=== PATIENT | male | born 1950 | race Caucasian/White ===

== ENCOUNTER 2017-01-15 17:46 | Inpatient (IN) | payer BC, OTHER ==
[2017-01-15 17:51] VITALS: BMI 29.7
[2017-01-15] MEDS ORDERED: ONDANSETRON 4 MG/2 ML VIAL ONE ×2 (18:09→18:17)
[2017-01-15] MEDS ORDERED: KETOROLAC TROMETHAMINE 30 MG/1 ML VIAL ONE ×2 (18:09→18:17)
[2017-01-15] MEDS ORDERED: HYDROmorphone HCL CARPU-JECT 2 MG/1 ML DISP.SYRIN ONE ×2 (18:09→18:17)
[2017-01-15] MEDS ORDERED: HYDROmorphone HCL CARPU-JECT 2 MG/1 ML DISP.SYRIN IVPUSH ONE (18:10)
--- NOTE | 2017-01-15 18:14 | PDOC ---
History of Present Illness <David Tobias - Last Filed: 01/15/17 18:09> - General History Source: Patient Exam Limitations: No Limitations - History of Present Illness Initial Comments: 01/15/17 18:23 The patient is a 66 year old male with past medical history of hypertension, chronic back pain who presents to the ED with complaints of flank pain that began today. The patient also noted hematuria while urinating multiple times today. As per , the patient experienced similar symptoms many years ago. The patient states that he follows up with a urologist located in [place]. He denies any fever, chills, nausea, vomiting, diarrhea, cough, shortness of breath. He denies any frequency, hesistency, or urgency. <Winnie Chen - Last Filed: 01/15/17 18:24> <Devika German - Last Filed: 01/15/17 21:30> <Michelle Churchill - Last Filed: 01/15/17 22:15> - General Chief Complaint: Hematuria Stated Complaint: SIDE PAIN/BLOOD IN URINE Time Seen by Provider: 01/15/17 18:08 Past History - Past Medical History HTN: Yes Kidney Stones: Yes - Surgical History Appendectomy: Yes - Psycho/Social/Smoking Cessation Hx Anxiety: No Suicidal Ideation: No Smoking History: Never smoked Hx Alcohol Use: Yes (SOCIAL) Drug/Substance Use Hx: No Substance Use Type: None <David Tobias - Last Filed: 01/15/17 18:09> <Winnie Chen - Last Filed: 01/15/17 18:24> <Devika German - Last Filed: 01/15/17 21:30> <Michelle Churchill - Last Filed: 01/15/17 22:15> - Past Medical History Allergies/Adverse Reactions: Allergies Allergy/AdvReac Type Severity Reaction Status Date / Time No Known Allergies Allergy Verified 01/15/17 17:50 Home Medications: Ambulatory Orders Atenolol [Tenormin -] 50 mg PO DAILY 01/15/17 Cyclobenzaprine HCl 0 mg PO 01/15/17 Enalapril Maleate [Vasotec -] 10 mg PO DAILY 01/15/17 Gabapentin 600 mg PO BID 01/15/17 Oxycodone HCl/Acetaminophen [Percocet 5-325 mg Tablet] 1 tab PO BID 01/15/17 Review of Systems - Review of Systems Able to Perform ROS?: Yes Comments:: 01/15/17 18:28 GENERAL/CONSTITUTIONAL: No fever or chills. No weakness. HEAD, EYES, EARS, NOSE AND THROAT: No change in vision. No ear pain or discharge. No sore throat. CARDIOVASCULAR: No chest pain or shortness of breath. RESPIRATORY: No cough, wheezing, or hemoptysis. GASTROINTESTINAL: No nausea, vomiting, diarrhea or constipation. GENITOURINARY: Present: flank pain, hematuria, dysuria No frequency. MUSCULOSKELETAL: No joint or muscle swelling or pain. No neck or back pain. SKIN: No rash NEUROLOGIC: No headache, vertigo, loss of consciousness, or change in strength/ sensation. ENDOCRINE: No increased thirst. No abnormal weight change. HEMATOLOGIC/LYMPHATIC: No anemia, easy bleeding, or history of blood clots. ALLERGIC/IMMUNOLOGIC: No hives or skin allergy. All Other Systems: Reviewed and Negative <Winnie Chen - Last Filed: 01/15/17 18:24> *Physical Exam - Vital Signs Last Vital Signs Temp Pulse Resp BP Pulse Ox 98.2 F 111 H 18 205/118 97 01/15/17 17:48 01/15/17 17:48 01/15/17 17:48 01/15/17 17:48 01/15/17 17:48 <David Tobias - Last Filed: 01/15/17 18:09> - Vital Signs Last Vital Signs Temp Pulse Resp BP Pulse Ox 98.2 F 111 H 18 205/118 97 01/15/17 17:48 01/15/17 17:48 01/15/17 17:48 01/15/17 17:48 01/15/17 17:48 - Physical Exam Comments: 01/15/17 18:30 GENERAL: Awake, alert, and fully oriented, in no acute distress HEAD: No signs of trauma EYES: PERRLA, EOMI, sclera anicteric, conjunctiva clear ENT: Auricles normal inspection, hearing grossly normal, nares patent, oropharynx clear without exudates. Moist mucosa NECK: Normal ROM, supple, no lymphadenopathy, JVD, or masses LUNGS: Breath sounds equal, clear to auscultation bilaterally. No wheezes, and no crackles HEART: Regular rate and rhythm, normal S1 and S2, no murmurs, rubs or gallops ABDOMEN: Soft, nontender, normoactive bowel sounds. No guarding, no rebound. No masses EXTREMITIES: Normal range of motion, no edema. No clubbing or cyanosis. No cords, erythema, or tenderness NEUROLOGICAL: Cranial nerves II through XII grossly intact. Normal speech, normal gait SKIN: Warm, Dry, normal turgor, no rashes or lesions noted. <Winnie Chen - Last Filed: 01/15/17 18:24> - Vital Signs Last Vital Signs Temp Pulse Resp BP Pulse Ox 98.2 F 85 18 172/85 98 01/15/17 17:48 01/15/17 19:07 01/15/17 19:07 01/15/17 19:07 01/15/17 19:07 <Devika German - Last Filed: 01/15/17 21:30> - Vital Signs Last Vital Signs Temp Pulse Resp BP Pulse Ox 98.2 F 85 18 172/85 98 01/15/17 17:48 01/15/17 19:07 01/15/17 19:07 01/15/17 19:07 01/15/17 19:07 <Michelle Churchill - Last Filed: 01/15/17 22:15> Heart Score/ECG Review #1 01/15/17 22:14 EKG obtained 22:03 NSR 81 bpm. Normal ECG. <Michelle Churchill - Last Filed: 01/15/17 22:15> ED Treatment Course - LABORATORY CBC & Chemistry Diagram: 01/15/17 18:20 01/15/17 18:20 - Medications Given in the ED: ED Medications Discontinued Medications Generic Name Dose Route Start Last Admin Trade Name Freq PRN Reason Stop Dose Admin Hydromorphone HCl 2 mg 01/15/17 18:10 01/15/17 18:20 Dilaudid Injection - IVPUSH 01/15/17 18:11 2 mg ONCE ONE Administration Ketorolac Tromethamine 30 mg 01/15/17 18:15 01/15/17 18:19 Toradol Injection - IVPUSH 01/15/17 18:16 30 mg ONCE ONE Administration Ondansetron HCl 4 mg 01/15/17 18:15 01/15/17 18:17 Zofran Injection IVPUSH 01/15/17 18:16 4 mg ONCE ONE Administration <HomeroWinnie lara - Last Filed: 01/15/17 18:24> - LABORATORY CBC & Chemistry Diagram: 01/15/17 18:20 01/15/17 18:20 - ADDITIONAL ORDERS Additional order review: Laboratory Results 01/15/17 18:20 Sodium 143 Potassium 4.1 Chloride 107 Carbon Dioxide 29 Anion Gap 7 L BUN 15 D Creatinine 1.2 D Creat Clearance w eGFR > 60 Random Glucose 112 H Calcium 9.1 Total Bilirubin 0.5 AST 18 ALT 26 Alkaline Phosphatase 62 Total Protein 7.0 Albumin 4.2 01/15/17 18:20 RBC 4.80 MCV 91.9 MCHC 33.9 RDW 12.4 MPV 8.1 Neutrophils % 48.0 Lymphocytes % 41.7 H Monocytes % 7.8 Eosinophils % 1.7 Basophils % 0.8 - Medications Given in the ED: ED Medications Discontinued Medications Generic Name Dose Route Start Last Admin Trade Name Stephane PRN Reason Stop Dose Admin Hydromorphone HCl 2 mg 01/15/17 18:10 01/15/17 18:20 Dilaudid Injection - IVPUSH 01/15/17 18:11 2 mg ONCE ONE Administration Ketorolac Tromethamine 30 mg 01/15/17 18:15 01/15/17 18:19 Toradol Injection - IVPUSH 01/15/17 18:16 30 mg ONCE ONE Administration Ondansetron HCl 4 mg 01/15/17 18:15 01/15/17 18:17 Zofran Injection IVPUSH 01/15/17 18:16 4 mg ONCE ONE Administration <Devika German - Last Filed: 01/15/17 21:30> - LABORATORY CBC & Chemistry Diagram: 01/15/17 18:20 01/15/17 18:20 - ADDITIONAL ORDERS Additional order review: Laboratory Results 01/15/17 18:20 Sodium 143 Potassium 4.1 Chloride 107 Carbon Dioxide 29 Anion Gap 7 L BUN 15 D Creatinine 1.2 D Creat Clearance w eGFR > 60 Random Glucose 112 H Calcium 9.1 Total Bilirubin 0.5 AST 18 ALT 26 Alkaline Phosphatase 62 Total Protein 7.0 Albumin 4.2 01/15/17 18:20 RBC 4.80 MCV 91.9 MCHC 33.9 RDW 12.4 MPV 8.1 Neutrophils % 48.0 Lymphocytes % 41.7 H Monocytes % 7.8 Eosinophils % 1.7 Basophils % 0.8 - Medications Given in the ED: ED Medications Discontinued Medications Generic Name Dose Route Start Last Admin Trade Name Stephane PRN Reason Stop Dose Admin Atenolol 50 mg 01/15/17 20:34 01/15/17 21:30 Tenormin - PO 01/15/17 20:35 50 mg ONCE ONE Administration Hydromorphone HCl 2 mg 01/15/17 18:10 01/15/17 18:20 Dilaudid Injection - IVPUSH 01/15/17 18:11 2 mg ONCE ONE Administration Ketorolac Tromethamine 30 mg 01/15/17 18:15 01/15/17 18:19 Toradol Injection - IVPUSH 01/15/17 18:16 30 mg ONCE ONE Administration Morphine Sulfate 2 mg 01/15/17 20:50 01/15/17 21:35 Morphine Injection - IVPUSH 01/15/17 20:51 2 mg ONCE ONE Administration Ondansetron HCl 4 mg 01/15/17 18:15 01/15/17 18:17 Zofran Injection IVPUSH 01/15/17 18:16 4 mg ONCE ONE Administration Sodium Chloride 500 ml 01/15/17 20:48 01/15/17 21:35 Normal Saline - IV 01/15/17 20:49 500 ml ONCE ONE Administration Tamsulosin HCl 0.4 mg 01/15/17 20:33 01/15/17 21:30 Flomax - PO 01/15/17 20:34 0.4 mg ONCE ONE Administration <Michelle Churchill - Last Filed: 01/15/17 22:15> Medical Decision Making - Medical Decision Making 01/15/17 20:31 Patient Name: Shay Maza THIS IS A PRELIMINARY REPORT FROM [facility] EXAM: CT abdomen and pelvis without contrast IMAGES: 466 DATE OF EXAM: 2017-01 18:40:42.0 REASON FOR EXAM: Flank pain and hematuria COMPARISON: None Findings: Mild atelectasis and scarring in lung bases. No pleural effusions. Small hiatal hernia. The liver, gallbladder, pancreas, adrenal glands, and spleen are grossly unremarkable. *Bilateral perinephric edema, left greater than right. Mild left hydroureteronephrosis due to a 5 mm calculus in the distal left ureter at the level of the upper pelvis. Tiny left intrarenal calculus. No AAA. No evidence for diverticulitis, small bowel obstruction, free fluid, or free air. Surgical changes around the cecum suggestive of appendectomy. THIS DOCUMENT HAS BEEN ELECTRONICALLY SIGNED 01/15/17 20:47 Pt remains with side pain and his BP is elevated. I will admit him as the kidney stone is 5mm and may not pass on its own. Pt cannot urinate and we are awaiting a urine sample. I will admit patient to [facility] surg for urology consult in the AM and for pain management overnight. <Devika German - Last Filed: 01/15/17 21:30> *DC/Admit/Observation/Transfer - Attestations Physician Attestion: 01/15/17 18:09 I, Dr. David Tobias, attest that this document has been prepared under my direction and personally reviewed by me in its entirety. I further attest, that it accurately reflects all work, treatment, procedures and medical decision -making performed by me. <David Tobias - Last Filed: 01/15/17 18:09> - Attestations Scribe Attestion: 01/15/17 18:31 Documentation prepared by Winnie Chen, acting as medical review coordinator for David Tobias MD. <Winnie Chen - Last Filed: 01/15/17 18:24> - Discharge Dispostion Admit: Yes <Devika German - Last Filed: 01/15/17 21:30> - Attestations Scribe Attestion: 01/15/17 22:14 Documentation prepared by Michelle Churchill, acting as medical review coordinator for Devika German MD. <Michelle Churchill - Last Filed: 01/15/17 22:15> Diagnosis at time of Disposition: Hydronephrosis with urinary obstruction due to ureteral calculus, Renal colic - Referrals
[2017-01-15] MEDS ORDERED: ONDANSETRON 4 MG/2 ML VIAL IVPUSH ONE (18:15)
[2017-01-15] MEDS ORDERED: KETOROLAC TROMETHAMINE 30 MG/1 ML VIAL IVPUSH ONE (18:15)
[2017-01-15 18:23] LABS: BASOPHIL 0.8 % (0-2.0); EOSINOPHIL 1.7 % (0-4.5); MCH 31.2 pg (25.7-33.7); MCHC 33.9 g/dl (32.0-35.9); MEAN CELL VOLUME 91.9 fl (80-96); MEAN PLT VOLUME 8.1 fl (7.5-11.1); PLATELET COUNT 273 K/MM3 (134-434); RDW 12.4 % (11.9-15.9)
[2017-01-15 18:50] LABS: ALBUMIN 4.2 g/dl (3.4-5.0); ALK PHOS 62 U/L (45-117); ANION GAP 7 (8-16); BILIRUBIN,TOTAL 0.5 mg/dL (0.2-1.0); CALCIUM 9.1 mg/dL (8.5-10.1); CO2 29 mmol/L (21-32); CREATININE 1.2 mg/dL (0.7-1.3); GLUCOSE,RANDOM 112 mg/dL (74-106); SGOT/AST 18 U/L (15-37); SGPT/ALT 26 U/L (12-78)
[2017-01-15] MEDS ORDERED: TAMSULOSIN HCL 0.4 MG CAP.ER.24H (FP) PO ONE (20:33)
[2017-01-15] MEDS ORDERED: ATENOLOL 50 MG TABLET (FP) PO ONE (20:34)
[2017-01-15] MEDS ORDERED: ENALAPRIL MALEATE 10 MG TABLET (FP) PO SCH (20:45)
[2017-01-15] MEDS ORDERED: SODIUM CHLORIDE 0.9% 500 ML INFUS.BAG IV ONE (20:48)
[2017-01-15] MEDS ORDERED: morphine CARPU-JECT 2 MG/1 ML DISP.SYRIN IVPUSH ONE (20:50)
--- NOTE | 2017-01-15 21:06 | PN ---
Teaching Attending Note Name of Resident: Yulisa Seymour ATTENDING PHYSICIAN STATEMENT I saw and evaluated the patient. I reviewed the resident's note and discussed the case with the resident. I agree with the resident's findings and plan as documented. SUBJECTIVE: 66 M who presents with Left flank pain. No fevers or chills noted at home. States he did not take his BP meds today and feels his pain level after pain meds in Ed is 4/10. States his pain radiates to left groin. No N/V/D. OBJECTIVE: Physical Vital Signs Period Temp Pulse Resp BP Sys/[place] Pulse Ox Last 24 Hr 98.2 F 85-111 18-18 172-205/85-118 97-98 BP RECHECK in ED 170/85 VS: GEN: NAD, Resting in bed HEENT: NCAT, PERRL CARD: RRR S1, S2 RESP: CTAB ABD: Mild suprapubic tenderness to palpation, BS X4 EXT: - C/C/E CBCD WBC 10.0 K/mm3 (4.0-10.0) 01/15/17 18:20 RBC 4.80 M/mm3 (4.00-5.60) 01/15/17 18:20 Hgb 15.0 GM/dL (11.7-16.9) 01/15/17 18:20 Hct 44.1 % (35.4-49) 01/15/17 18:20 MCV 91.9 fl (80-96) 01/15/17 18:20 MCHC 33.9 g/dl (32.0-35.9) 01/15/17 18:20 RDW 12.4 % (11.9-15.9) 01/15/17 18:20 Plt Count 273 K/MM3 (134-434) 01/15/17 18:20 MPV 8.1 fl (7.5-11.1) 01/15/17 18:20 CMP Sodium 143 mmol/L (136-145) 01/15/17 18:20 Potassium 4.1 mmol/L (3.5-5.1) 01/15/17 18:20 Chloride 107 mmol/L (98-107) 01/15/17 18:20 Carbon Dioxide 29 mmol/L (21-32) 01/15/17 18:20 Anion Gap 7 (8-16) L 01/15/17 18:20 BUN 15 mg/dL (7-18) D 01/15/17 18:20 Creatinine 1.2 mg/dL (0.7-1.3) D 01/15/17 18:20 Creat Clearance w eGFR > 60 (>60) 01/15/17 18:20 Random Glucose 112 mg/dL (74-106) H 01/15/17 18:20 Calcium 9.1 mg/dL (8.5-10.1) 01/15/17 18:20 Total Bilirubin 0.5 mg/dL (0.2-1.0) 01/15/17 18:20 AST 18 U/L (15-37) 01/15/17 18:20 ALT 26 U/L (12-78) 01/15/17 18:20 Alkaline Phosphatase 62 U/L (45-117) 01/15/17 18:20 Total Protein 7.0 g/dl (6.4-8.2) 01/15/17 18:20 Albumin 4.2 g/dl (3.4-5.0) 01/15/17 18:20 THIS IS A PRELIMINARY REPORT FROM [facility] EXAM: CT abdomen and pelvis without contrast IMAGES: 466 DATE OF EXAM: 2017-01-15 18:40:42.0 REASON FOR EXAM: Flank pain and hematuria COMPARISON: None Findings: Mild atelectasis and scarring in lung bases. No pleural effusions. Small hiatal hernia. The liver, gallbladder, pancreas, adrenal glands, and spleen are grossly unremarkable. *Bilateral perinephric edema, left greater than right. Mild left hydroureteronephrosis due to a 5 mm calculus in the distal left ureter at the level of the upper pelvis. Tiny left intrarenal calculus. No AAA. No evidence for diverticulitis, small bowel obstruction, free fluid, or free air. Surgical changes around the cecum suggestive of appendectomy. THIS DOCUMENT HAS BEEN ELECTRONICALLY SIGNED ASSESSMENT AND PLAN: 66 M with pmhx of HTN and Chronic back pain who presents with Left Flank Pain found to have nephrolithiasis with uncontrolled pain 1.)Nephrolithiasis, with mild hydroureteronephrosis - Flomax - IVF - Urine Strain - Pain control - If no improvement then Urology consult 2.) HTN - Uncontrolled - Pt. Did not take home meds, given- now controlled - C/w home meds 3.) Dvt Ppx - Low risk- ambulate Place in Obs
[2017-01-15] MEDS ORDERED: ATENOLOL 25 MG TABLET (FP) ONE (21:26)
[2017-01-15] MEDS ORDERED: morphine CARPU-JECT 2 MG/1 ML DISP.SYRIN ONE (21:26)
[2017-01-15] MEDS ORDERED: ENALAPRIL MALEATE 5 MG TABLET (FP) ONE (21:26)
[2017-01-15] MEDS ORDERED: TAMSULOSIN HCL 0.4 MG CAP.ER.24H (FP) ONE (21:27)
[2017-01-15 23:00] LABS: URINE APPEARANCE SLCLOUDY; URINE BILIRUBIN NEGATIVE (NEGATIVE); URINE COLOR YELLOW; URINE GLUCOSE (UA) NEGATIVE (NEGATIVE); URINE KETONE NEGATIVE (NEGATIVE); URINE LEUK ESTERASE NEGATIVE (NEGATIVE); URINE NITRITE NEGATIVE (NEGATIVE); URINE PROTEIN NEGATIVE (NEGATIVE); URINE UROBILINOGEN NEGATIVE E.U./dl (0.2-1.0)
[2017-01-15 23:01] LABS: URINE BLOOD 3+ (NEGATIVE)
[2017-01-15 23:05] LABS: URINE MUCUS MODERATE; URINE RBC 642 /hpf (0-3)
--- NOTE | 2017-01-15 23:19 | HP ---
CHIEF COMPLAINT: Left flank pain PCP: Dr. Evangelina Sanchez HISTORY OF PRESENT ILLNESS: Patient is a 66 year old male with a Significant PMHx of Nephrolithiasis and HTN who was BIBA for left flank pain that started three days ago in the middle of the night, which awoken him from sleep. The following day the patient noticed blood in his urine which later turned into blood clots. The left flank pain suddenly worsened today, which prompted this ED visit. Otherwise, patient denies dysuria, frequency, urgency, melena, dizziness, loss of consciousness, headaches, nausea, vomiting. Vital Signs - 24 hr 01/15/17 01/15/17 01/15/17 17:48 19:07 23:18 Temperature 98.2 F 97.6 F Pulse Rate 111 H Pulse Rate [ 85 83 Apical] Respiratory 18 18 18 Rate Blood Pressure 205/118 Blood Pressure 172/85 170/97 [Right Arm] O2 Sat by Pulse 97 98 95 Oximetry (%) PHYSICAL EXAMINATION GENERAL: Awake, alert, and fully oriented, and in no acute distress LUNGS: Breath sounds equal, clear to auscultation bilaterally. No wheezes, and no crackles. No accessory muscle use. HEART: Regular rate and rhythm, normal S1 and S2 without murmur, rub or gallop. ABDOMEN: Soft, nondistended. Left CVA and LLQ Tenderness upon palpation, normoactive bowel sounds. (+) Suprapubic tenderness LOWER EXTREMITIES: No peripheral edema. IMAGES: CT Abdomen/Pelvis: Mild atelectasis and scarring in lung bases. No pleural effusions. Small hiatal hernia. The liver, gallbladder, pancreas, adrenal glands, and spleen are grossly unremarkable. *Bilateral perinephric edema, left greater than right. Mild left hydroureteronephrosis due to a 5 mm calculus in the distal left ureter at the level of the upper pelvis. Tiny left intrarenal calculus. No AAA. No evidence for diverticulitis, small bowel obstruction, free fluid, or free air. Surgical changes around the cecum suggestive of appendectomy. ASSESSMENT/PLAN: Patient is a 66 year old male with a PMHx of HTN and Nephrolithiasis who presented for left flank pain and was found to have nephrolithiasis with mild left hydroureteronephrosis. Patient admitted for further monitoring and management. Nephrolithiasis with mild hydroureteronephrosis and Hematuria -CT revealed 5mm calculus with hydroureteronephrosis -U/A positive for 3+ blood -Pain Control with IV NS @125mls/hr -Morphine 1mg Q4H PRN for pain control -Flomax 0.4mg daily -Urine Strain -Will call Urology if no improvement or passage. HTN- Uncontrolled initially due to patient not taking his meds in the morning. Now on control. Continue home medications Enalapril and Atenolol Chronic Back Pain- Controlled. Continue home medications Gabapentin, Cyclobenzaprine F/E/N -IV NS -Electrolytes wnl -Sodium controlled diet Prophylaxis -Low risk. EAM. SCD's for DVT -No GI prophylaxis indicated Disposition -Full code -Admit to Med/Surg Visit type - Emergency Visit Emergency Visit: Yes ED Registration Date: 01/15/17 Care time: The patient presented to the Emergency Department on the above date and was hospitalized for further evaluation of their emergent condition. - New Patient This patient is new to me today: Yes Date on this admission: 01/16/17 - Critical Care Critical Care patient: Yes Total Critical Care Time (in minutes): 45 Critical Care Statement: The care of this patient involved high complexity decision making to prevent further life threatening deterioration of the patient 's condition and/or to evalute & treat vital organ system(s) failure or risk of failure.
[2017-01-15] MEDS ORDERED: ONDANSETRON 4 MG/2 ML VIAL IVPB PRN (23:27)
--- NOTE | 2017-01-16 00:06 | HP ---
-CHIEF COMPLAINT: Left flank pain, hematuria PCP: HISTORY OF PRESENT ILLNESS: 66yo man with remote hx of nephrolithiasis (35y ago, passed spontaneously), well controlled HTN, chronic low back pain (on oxycodone) who was BIBEMS for L flank pain and hematuria. He was at his [facility] last Monday when he was awoken from sleep by acute onset L flank pain that lasted for 1 hour. The following day he had hematuria, which has continued to the present each time he urinates. He noted occasional blood clots in his urine a few days ago, but no stones thus far. This afternoon (01/16) he again had acute onset non-radiating L flank pain. He denies urinary frequency, hesitancy, and urgency. He denies fever, but felt subjectively cold this afternoon despite the 94F weather today. He endorses nausea, but no vomiting. Denies chest pain, palpitation, and SOB. In the ED, he received 1mg hydromorphine, Ketorolac for pain. UA analysis c/w hematuria. Admit to Medicine for renal calculi and pain management. PAST MEDICAL HISTORY: #Nephrolithiasis: 35y ago, spontaneously passed stone #HTN: diagnosed at age 52. 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 #Obstructed ureter: 3y ago had "microwave" procedure for difficulty with urination. Possible BPH/LUTS. Urologist Dr. Mejia Mendoza, ([phone]). PAST SURGICAL HISTORY: #Appendectomy, 1999 #Inguinal hernia repair, 2013 Social History: Smoking: quit 1985, 2-3/day for 15years Alcohol: Social Drugs: Denies Family History: No nephrolithiasis, both parents HTN and of [place] (mom @ 54yo , dad @ 75yo) Allergies:No Known Allergies Allergy (Verified 01/15/17 17:50) HOME MEDICATIONS: Home Medications Medication Instructions Recorded Atenolol [Tenormin -] 50 mg PO DAILY 01/15/17 Cyclobenzaprine HCl 5 mg PO 01/15/17 Enalapril Maleate [Vasotec -] 10 mg PO DAILY 01/15/17 Gabapentin 600 mg PO BID 01/15/17 Oxycodone HCl/Acetaminophen 1 tab PO TID 01/15/17 [Percocet 5-325 mg Tablet] Aspirin 81 mg PO DAILY 01/15/17 REVIEW OF SYSTEMS CONSTITUTIONAL: +Nausea Absent: fever, chills, diaphoresis, generalized weakness, malaise, loss of appetite, weight change HEENT: Absent: rhinorrhea, nasal congestion, throat pain, throat swelling, difficulty swallowing, mouth swelling, ear pain, eye pain, visual changes CARDIOVASCULAR: Absent: chest pain, syncope, palpitations, irregular heart rate , lightheadedness, peripheral edema RESPIRATORY: Absent: cough, shortness of breath, dyspnea with exertion, orthopnea, wheezing, stridor, hemoptysis GASTROINTESTINAL: +nausea, +abdominal pain Absent: abdominal distension, vomiting, diarrhea, constipation, melena, hematochezia GENITOURINARY: +hematuria, flank pain, dysuria Absent: frequency, urgency, hesitancy, genital pain MUSCULOSKELETAL: Low back pain Absent: myalgia, arthralgia, joint swelling, neck pain SKIN: Absent: rash, itching, pallor HEMATOLOGIC/IMMUNOLOGIC: No hx of easy bleeding, easy bruising, lymphadenopathy , frequent infections ENDOCRINE: Absent: unexplained weight gain, unexplained weight loss, heat intolerance, cold intolerance NEUROLOGIC: Absent: headache, focal weakness or paresthesias, dizziness, unsteady gait, seizure, mental status changes, bladder or bowel incontinence PSYCHIATRIC: Not Assessed PHYSICAL EXAMINATION Vital Signs - 24 hr 01/15/17 23:18 Temperature 97.6 F Pulse Rate [ 83 Apical] Respiratory 18 Rate Blood Pressure 170/97 [Right Arm] O2 Sat by Pulse 95 Oximetry (%) GENERAL: Awake, alert, and fully oriented, in no acute distress. HEAD: Normal with no signs of trauma. EYES: PERRLA, EOMI, sclera anicteric, conjunctiva clear. NECK: Supple without lymphadenopathy, JVD, or masses. LUNGS: CTAB, no wheezes, and no crackles. No accessory muscle use. HEART: Regular rate and rhythm, normal S1 and S2 without murmur, rub or gallop. ABDOMEN: Soft, Left sided tenderness to deep palpation, no guarding, no rebound , no masses. No hepatosplenomegaly : L flank and suprapubic tenderness to palpation, no CVA tenderness UPPER EXTREMITIES: No peripheral edema. LOWER EXTREMITIES: 2+ pulses, warm, well-perfused. No peripheral edema. LABS: Laboratory Results - last 24 hr 01/15/17 01/15/17 01/15/17 18:14 18:20 18:20 WBC 10.0 RBC 4.80 Hgb 15.0 Hct 44.1 MCV 91.9 MCHC 33.9 RDW 12.4 Plt Count 273 MPV 8.1 Neutrophils % 48.0 Lymphocytes % 41.7 H Monocytes % 7.8 Eosinophils % 1.7 Basophils % 0.8 Sodium 143 Potassium 4.1 Chloride 107 Carbon Dioxide 29 Anion Gap 7 L BUN 15 D Creatinine 1.2 D Creat Clearance w eGFR > 60 Random Glucose 112 H Calcium 9.1 Total Bilirubin 0.5 AST 18 ALT 26 Alkaline Phosphatase 62 Total Protein 7.0 Albumin 4.2 Urine Color Yellow Urine Appearance Slcloudy Urine pH 5.0 Urine Protein Negative Urine Glucose (UA) Negative Urine Ketones Negative Urine Blood 3+ H Urine Nitrite Negative Urine Bilirubin Negative Urine Urobilinogen Negative Ur Leukocyte Esterase Negative Urine RBC 642 Urine WBC None Ur Epithelial Cells Rare Urine Mucus Moderate IMAGING: EXAM (01/15/17): CT abdomen and pelvis without contrast Patient Name: Shay Maza THIS IS A PRELIMINARY REPORT FROM [facility] IMAGES: [phone] DATE OF EXAM: 2017-01-15 18:40:42.0 REASON FOR EXAM: Flank pain and hematuria COMPARISON: None Findings: Mild atelectasis and scarring in lung bases. No pleural effusions. Small hiatal hernia. The liver, gallbladder, pancreas, adrenal glands, and spleen are grossly unremarkable. *Bilateral perinephric edema, left greater than right. Mild left hydroureteronephrosis due to a 5 mm calculus in the distal left ureter at the level of the upper pelvis. Tiny left intrarenal calculus. No AAA. No evidence for diverticulitis, small bowel obstruction, free fluid, or free air. Surgical changes around the cecum suggestive of appendectomy. THIS DOCUMENT HAS BEEN ELECTRONICALLY SIGNED CXR (01/15/2017): No pleural effusion, no pneumothorax ASSESSMENT/PLAN: This is a 66yo man with remote h/o nephrolithiasis (spontaneously passed) who presents with L flank pain and hematuria c/w acute nephrolithiasis. Physical exam was notable for suprapubic tenderness to palpation (7/10 pain) and L flank tenderness to palpation. UA notable for hematuria (3+ blood, 642 RBCs) with negative LE. CT abd/pelvis revealed mild L hydrourteronephrosis 2/2 to 5mm stone at distal L ureter. Pt is currently afebrile with no leukocytosis (WBC 10K ). Currently Cr is 1.2 with last prior creatinine of 0.7 in 2011. #Nephrolithiasis with hematuria -Tamsulosin 0.4mg PO daily -Hydromorphine 1mg q6h prn for pain -NS @125cc/min for hydration -Urine strain -AM BMP: Trend Cr -AM CBC -Consult urology if symptoms worsen. #HTN -Continue with home meds (ASA 81 daily, atenolol 50mg PO daily, enalapril 10mg PO daily) #Low back pain: Chronic -Continue with home meds (gabapentin 600mg PO BID, cyclobenaprine 5mg PO BID) -Hold Home oxycodone 325mg PO TID #F/E/N -IV NS -Electrolytes wnl -Low salt Diet #DVT prophylaxis: Low risk, EAM. SCD's b/l #Dispo: -FULL CODE -Admit Med/Surg d/w with team Yaquelin Nichols MD Visit type - Emergency Visit Emergency Visit: Yes ED Registration Date: 01/15/17 Care time: The patient presented to the Emergency Department on the above date and was hospitalized for further evaluation of their emergent condition. - New Patient This patient is new to me today: Yes Date on this admission: 01/16/17 - Critical Care Critical Care patient: No
[2017-01-16] MEDS: SODIUM CHLORIDE 1,000 ML IV SCH ×3 (00:30→23:00)
[2017-01-16] MEDS: morphine CARPU-JECT 2 MG/1 ML DISP.SYRIN IVPUSH PRN ×7 (00:32→23:08)
[2017-01-16] MEDS ORDERED: HYDROmorphone HCL CARPU-JECT 1 MG/1 ML DISP.SYRIN IVPUSH ONE (00:53)
[2017-01-16] MEDS ORDERED: HYDROmorphone HCL CARPU-JECT 1 MG/1 ML DISP.SYRIN ONE (03:09)
[2017-01-16 08:08] LABS: ANION GAP 9 (8-16); CALCIUM 8.6 mg/dL (8.5-10.1); CO2 26 mmol/L (21-32); CREATININE 1.4 mg/dL (0.7-1.3); GLUCOSE,RANDOM 103 mg/dL (74-106)
[2017-01-16 08:10] LABS: MCH 31.5 pg (25.7-33.7); MCHC 34.2 g/dl (32.0-35.9); MEAN CELL VOLUME 92.1 fl (80-96); MEAN PLT VOLUME 8.1 fl (7.5-11.1); PLATELET COUNT 230 K/MM3 (134-434); RDW 12.4 % (11.9-15.9); WHITE BLOOD COUNT 12.4 K/mm3 (4.0-10.0)
[2017-01-16] MEDS: ATENOLOL 50 MG TABLET (FP) PO SCH (09:38)
[2017-01-16] MEDS: ASPIRIN 81 MG CHEWABLE TABLETS PO SCH (09:38)
[2017-01-16] MEDS: ENALAPRIL MALEATE 10 MG TABLET (FP) PO SCH (09:38)
[2017-01-16] MEDS: TAMSULOSIN HCL 0.4 MG CAP.ER.24H (FP) PO SCH (09:38)
[2017-01-16] MEDS: CYCLOBENZAPRINE HCL 10 MG TABLET (FP) PO SCH ×2 (09:38→21:37)
[2017-01-16] MEDS: GABAPENTIN 300 MG CAPSULE (FP) PO SCH ×2 (09:38→21:37)
--- NOTE | 2017-01-16 10:36 | EKG ---
Test Reason : Blood Pressure : / mmHG Vent. Rate : 081 BPM Atrial Rate : 081 BPM P-R Int : 172 ms QRS Dur : 086 ms QT Int : 372 ms P-R-T Axes : 049 -09 -04 degrees QTc Int : 432 ms NORMAL SINUS RHYTHM NORMAL ECG WHEN COMPARED WITH ECG OF 25-AUG-2000 00:31, PREMATURE VENTRICULAR COMPLEXES ARE NO LONGER PRESENT Confirmed by NANCI DE LA ROSA MD ([id number]) on 01/16/2017 10:35:58 AM Referred By: Confirmed By:NANCI DE LA ROSA MD
[2017-01-16] MEDS ORDERED: SIMETHICONE 80 MG TAB.CHEW (FP) PO ONE (11:46)
--- NOTE | 2017-01-16 14:56 | PN ---
Teaching Attending Note Name of Resident: Yves Huber ATTENDING PHYSICIAN STATEMENT I saw and evaluated the patient. I reviewed the resident's note and discussed the case with the resident. I agree with the resident's findings and plan as documented. SUBJECTIVE:c/o excruciating L flank pain, some improvement with pain medication but does not last long enough until next available dose. hematuria has resolved but noted his UOP has decreased. last episode was 35 years ago which passed spontaneously, gave stone for composition but never followed up on results. no family hx of nephrolithasis. no recent changes to medications or diet OBJECTIVE: Last Vital Signs Temp Pulse Resp BP Pulse Ox 97.3 F L 74 20 188/104 95 01/16/17 10:00 01/16/17 10:00 01/16/17 10:01/16/17 10:01/16/17 09:00 General mild distress due to pain CV S1 S2 RRR no murmur/rub/gallop Lungs CTA B/L no wheezing/rales/rhonchi Abdomen L flank pain, mild CVA tenderness, +suprapubic discomfort ASSESSMENT AND PLAN: 66yo M with PMH HTN presented to the ER with L flank pain and found to have L sided nephrolithasis 1. L nephrolithasis with hydroureter- concern for decrease in UOP. check bladder scan. AXR to assess if stone has progressed. if not and continues to be in pain, will consult urology for intervention. increase morphine frequency to Q3H, cannot use toradol due to PAULINA. Cont high dose IVF, cont flomax. strain all urine. will need to evaluate for cause of nephrolithasis. 2. PAULINA- likely medication induced vs developing obstruction. will trend for now as lower on presentation. avoid nephrotoxic agents 3. HTN- uncontrolled. likely due to pain. adjust pain medications and give home medications. will adjust if needed 4. dvt ppx- EAM
[2017-01-16] MEDS: POLYETHYLENE GLYCOL 3350 119 GM BTL PO SCH ×2 (15:07→21:38)
--- NOTE | 2017-01-16 16:47 | PN ---
Physical Exam: SUBJECTIVE: Patient seen and examined Patient states he has had severe L flank pain overnight. He states the pain medicine helps for a while but then comes back prior to the next dose. Patient has had minimal episodes of urine output without hematuria or dysuria. Endorses abdominal distention. Denies chest pain, shortness of breath, fevers, chills, nausea, vomiting, diarrhea. OBJECTIVE: Vital Signs Period Temp Pulse Resp BP Sys/Hastings Pulse Ox Last 24 Hr 97.3 F-98.9 F 72-83 18-20 139-188/79-104 95-95 GENERAL: The patient is awake, alert, and fully oriented, in moderate acute distress. HEAD: Normal with no signs of trauma. EYES: PERRL, extraocular movements intact, sclera anicteric, conjunctiva clear. ENT: moist mucous membranes. NECK: Trachea midline, full range of motion, supple, no JVD LUNGS: Breath sounds equal, clear to auscultation bilaterally, no wheezes, no crackles, no accessory muscle use. HEART: Regular rate and rhythm, S1, S2 without murmur, rub or gallop. ABDOMEN: soft, mild distention, nontender, normoactive bowel sounds, no guarding , no rebound, no hepatosplenomegaly, no masses, Left flank pain, mild left CVA tenderness EXTREMITIES: 2+ pulses, warm, well-perfused, no edema. NEUROLOGICAL: Normal speech, gait not observed. PSYCH: Normal mood, normal affect. Laboratory Results - last 24 hr 01/16/17 01/16/17 06:00 06:00 WBC 12.4 H RBC 4.57 Hgb 14.4 Hct 42.1 MCV 92.1 MCHC 34.2 RDW 12.4 Plt Count 230 MPV 8.1 Sodium 141 Potassium 4.4 Chloride 106 Carbon Dioxide 26 Anion Gap 9 BUN 17 Creatinine 1.4 H Random Glucose 103 Calcium 8.6 Active Medications Generic Name Dose Route Start Last Admin Trade Name Freq PRN Reason Stop Dose Admin Aspirin 81 mg 01/16/17 10:01/16/17 09:38 Asa - PO 81 mg DAILY NORI Administration Atenolol 50 mg 01/16/17 10:00 01/16/17 09:38 Tenormin - PO 50 mg DAILY NORI Administration Cyclobenzaprine HCl 5 mg 01/16/17 10:00 01/16/17 09:38 Flexeril - PO 5 mg BID NORI Administration Enalapril Maleate 10 mg 01/16/17 10:00 01/16/17 09:38 Vasotec - PO 10 mg DAILY NORI Administration Gabapentin 300 mg 01/16/17 10:00 01/16/17 09:38 Neurontin - PO 300 mg BID NORI Administration Sodium Chloride 1,000 mls @ 125 mls/hr 01/15/17 23:30 01/16/17 00:30 Normal Saline - IV 125 mls/hr ASDIR NORI Administration Morphine Sulfate 1 mg 01/16/17 08:59 01/16/17 13:34 Morphine Injection - IVPUSH 1 mg Q3H PRN Administration PAIN Ondansetron HCl 4 mg 01/15/17 23:27 Zofran Injection IVPB Q6H PRN NAUSEA Polyethylene Glycol 17 gm 01/16/17 22:00 01/16/17 15:07 Miralax (For Daily Use) - PO 17 grams BID NORI Administration Tamsulosin HCl 0.4 mg 01/16/17 08:30 01/16/17 09:38 Flomax - PO 0.4 mg DAILY@0830 NORI Administration ASSESSMENT/PLAN: 66 year old M with a PMH of nephrolithiasis (35 years prior), which spontaneously passed at the time who presented to the ED with L flank pain and hematuria admitted for acute nephrolithiasis. 1. Nephrolithiasis -Remote history of nephrolithiasis 35 years prior with spontaneous passing of stone -CT abdomen shows a 5 mm stone in the distal ureter with mild hydronephrosis -f/u Abd KUB shows no evidence of stone -Bladder scan shows 50 cc of urine Plan: -Continue Tamsulosin 0.4mg daily -Continue Morphine Sulfate 1 mg IV push Q3 hrs PRN -Continue NS 125 cc/hr -Urine strain -Consult Urology 2. PAULINA -Likely medication induced, patient was given ketorolac -Cr increased to 1.4 from 1.2 Plan: -Continue to trend Cr -Avoid any nephrotoxic medications 3. HTN -poorly controlled Plan: -Continue Vasotec 10 mg PO Daily and Atenolol 50 mg PO Daily 4. Leukocytosis -Likely reactive leukocytosis Plan: -Continue to trend WBC 5. DVT Prophylaxis Plan: -EAM Visit type - Emergency Visit Emergency Visit: No - New Patient This patient is new to me today: Yes Date on this admission: 01/16/17 - Critical Care Critical Care patient: No
--- NOTE | 2017-01-16 17:58 | PN ---
Progress Note (short form) - Note Progress Note: called at 540pm today for this patient with a 5mm left UVJ stone and hydro patient has renal colic no fevers or any signs of infection or sepsis based on size and position stone had 90% chance of passage with medical expulsive therapy will follow Problem List - Problems (1) Hydronephrosis with urinary obstruction due to ureteral calculus Code(s): N13.2 - HYDRONEPHROSIS WITH RENAL AND URETERAL CALCULOUS OBSTRUCTION
[2017-01-17] MEDS ORDERED: CEFTRIAXONE 50 ML IVPB ONE (00:32)
[2017-01-17] MEDS: morphine CARPU-JECT 2 MG/1 ML DISP.SYRIN IVPUSH PRN ×5 (02:44→15:35)
[2017-01-17 08:15] LABS: BASOPHIL 0.2 % (0-2.0); EOSINOPHIL 0.5 % (0-4.5); MCH 32.1 pg (25.7-33.7); MCHC 35.1 g/dl (32.0-35.9); MEAN CELL VOLUME 91.5 fl (80-96); MEAN PLT VOLUME 8.2 fl (7.5-11.1); NEUTROPHILS 72.9 % (42.8-82.8); PLATELET COUNT 200 K/MM3 (134-434); RDW 12.1 % (11.9-15.9); WHITE BLOOD COUNT 12.4 K/mm3 (4.0-10.0)
[2017-01-17 08:25] LABS: INR 1.18 (0.82-1.09)
[2017-01-17 08:37] LABS: ANION GAP 10 (8-16); CALCIUM 8.2 mg/dL (8.5-10.1); CO2 25 mmol/L (21-32); GLUCOSE,RANDOM 107 mg/dL (74-106)
[2017-01-17 08:39] LABS: CREATININE 1.4 mg/dL (0.7-1.3)
[2017-01-17] MEDS: POLYETHYLENE GLYCOL 3350 119 GM BTL PO SCH ×2 (09:14→22:26)
[2017-01-17] MEDS: TAMSULOSIN HCL 0.4 MG CAP.ER.24H (FP) PO SCH ×2 (09:16→22:26)
[2017-01-17] MEDS: ENALAPRIL MALEATE 10 MG TABLET (FP) PO SCH (09:16)
[2017-01-17] MEDS: CYCLOBENZAPRINE HCL 10 MG TABLET (FP) PO SCH ×2 (09:16→22:24)
[2017-01-17] MEDS: ATENOLOL 50 MG TABLET (FP) PO SCH (09:16)
[2017-01-17] MEDS: GABAPENTIN 300 MG CAPSULE (FP) PO SCH ×2 (09:16→22:27)
[2017-01-17] MEDS: SODIUM CHLORIDE 1,000 ML IV SCH (09:17)
--- NOTE | 2017-01-17 09:29 | PN ---
Teaching Attending Note Name of Resident: Yves Huber ATTENDING PHYSICIAN STATEMENT I saw and evaluated the patient. I reviewed the resident's note and discussed the case with the resident. I agree with the resident's findings and plan as documented. SUBJECTIVE:c/o L flank pain,. relieved with pain medication. states hes been straining all urine and has not seen stone passage yet. requesting surgery to remove the stone. denies Cp, SOB,fever, chills, N/V/C/D, no hematuria OBJECTIVE: Last Vital Signs Temp Pulse Resp BP Pulse Ox 99.7 F H 80 20 137/65 95 01/17/17 06:17 01/17/17 06:17 01/17/17 06:17 01/17/17 06:01/16/17 09:00 General NAD Abdomen L flank pain, mild CVA tenderness, no suprapubic discomfort ASSESSMENT AND PLAN: 66yo M with PMH HTN presented to the ER with L flank pain and found to have L sided nephrolithasis 1. L nephrolithasis with hydroureter-continues to have pain but is relieved with morphine. AXR shows no stone however pt remains in pain. UOP reported by pt to have improved,. bladder scan after urination with only 50cc residual. evaluated by urology who states to continue medical management at this time but did make pt NPO this AM, possibility of . was given Ceftriaxone x1. Cont high dose IVF, cont flomax. strain all urine. will need to evaluate for cause of nephrolithasis as outpatient. 2. PAULINA- likely medication induced. stable. cont IVF.avoid nephrotoxic agents 3. HTN- uncontrolled. likely due to pain. this AM improved. will adjust if needed 4. dvt ppx- EAM
--- NOTE | 2017-01-17 09:40 | PN ---
Physical Exam: SUBJECTIVE: Patient seen and examined Still complaining of L flank pain, but better controlled with pain medication. States he has increased urine output without hematuria or dysuria. Does not believe the stone has passed. Denies chest pain, shortness of breath, nausea, vomiting, diarrhea, or constipation. OBJECTIVE: Vital Signs Period Temp Pulse Resp BP Sys/Hastings Pulse Ox Last 24 Hr 97.3 F-99.7 F 72-80 18-20 137-188/65-104 GENERAL: The patient is awake, alert, and fully oriented, in no acute distress. HEAD: Normal with no signs of trauma. EYES: extraocular movements intact, sclera anicteric, conjunctiva clear. ENT: oropharynx clear without exudates, moist mucous membranes. NECK: Trachea midline LUNGS: Breath sounds equal, clear to auscultation bilaterally, no wheezes, no crackles, no accessory muscle use. HEART: Regular rate and rhythm, S1, S2 without murmur, rub or gallop. ABDOMEN: Soft, nontender, nondistended, normoactive bowel sounds, no guarding, no rebound, no hepatosplenomegaly, no masses, L FLANK PAIN, MILD CVA TENDERNESS NEUROLOGICAL: Normal speech, gait not observed. PSYCH: Normal mood, normal affect. Laboratory Results - last 24 hr 01/17/17 01/17/17 01/17/17 06:10 06:10 06:10 WBC 12.4 H RBC 4.11 Hgb 13.2 Hct 37.6 MCV 91.5 MCHC 35.1 RDW 12.1 Plt Count 200 MPV 8.2 Neutrophils % 72.9 D Lymphocytes % 17.3 D Monocytes % 9.1 Eosinophils % 0.5 Basophils % 0.2 INR 1.18 H Sodium 137 Potassium 4.0 Chloride 102 Carbon Dioxide 25 Anion Gap 10 BUN 14 Creatinine 1.4 H Random Glucose 107 H Calcium 8.2 L Active Medications Generic Name Dose Route Start Last Admin Trade Name Freq PRN Reason Stop Dose Admin Aspirin 81 mg 01/16/17 10:00 01/16/17 09:38 Asa - PO 81 mg DAILY NORI Administration Atenolol 50 mg 01/16/17 10:00 01/17/17 09:16 Tenormin - PO 50 mg DAILY NORI Administration Cyclobenzaprine HCl 5 mg 01/16/17 10:00 07/04/17 09:16 Flexeril - PO 5 mg BID NORI Administration Enalapril Maleate 10 mg 01/16/17 10:00 01/17/17 09:16 Vasotec - PO 10 mg DAILY NORI Administration Gabapentin 300 mg 01/16/17 10:00 01/17/17 09:16 Neurontin - PO 300 mg BID NORI Administration Sodium Chloride 1,000 mls @ 125 mls/hr 01/15/17 23:30 01/17/17 09:17 Normal Saline - IV 125 mls/hr ASDIR NORI Administration Morphine Sulfate 2 mg 01/16/17 20:17 01/17/17 09:13 Morphine Injection - IVPUSH 2 mg Q3H PRN Administration PAIN Ondansetron HCl 4 mg 01/15/17 23:27 Zofran Injection IVPB Q6H PRN NAUSEA Polyethylene Glycol 17 gm 01/16/17 22:00 01/17/17 09:14 Miralax (For Daily Use) - PO Not Given BID [facility] Tamsulosin HCl 0.4 mg 01/16/17 08:30 01/17/17 09:16 Flomax - PO 0.4 mg DAILY@0830 NORI Administration ASSESSMENT/PLAN: 66 year old M with a PMH of nephrolithiasis (35 years prior), which spontaneously passed at the time who presented to the ED with L flank pain and hematuria admitted for acute nephrolithiasis. 1. L Nephrolithiasis with mild hydronephrosis -Remote history of nephrolithiasis 35 years prior with spontaneous passing of stone -CT abdomen shows a 5 mm stone in the distal ureter with mild hydronephrosis -f/u Abd KUB shows no evidence of stone -Bladder scan shows 50 cc of urine -Pain better controlled on 01/17 -Urology will follow, possibly perform procedure today -Received one dose of ceftriaxone 1g Plan: -Continue Tamsulosin 0.4mg daily -Continue Morphine Sulfate 2 mg IV push Q3 hrs PRN -Continue NS 125 cc/hr -Urine strain -F/u with Urology 2. PAULINA -Likely medication induced, patient was given ketorolac on 01/15 -Cr stable at 1.4 on 01/17 Plan: -Continue to trend Cr -Avoid any nephrotoxic medications 3. HTN -better controlled this morning -likely due to pain Plan: -Continue Vasotec 10 mg PO Daily and Atenolol 50 mg PO Daily 4. Leukocytosis -Likely reactive leukocytosis -Stable at 12.4 Plan: -Continue to trend WBC 5. Low back pain -Chronic Plan: -Continue with home meds (gabapentin 300mg PO BID, cyclobenzaprine 5mg PO BID) 6. DVT Prophylaxis Plan: -EAM Visit type - Emergency Visit Emergency Visit: No - New Patient This patient is new to me today: No - Critical Care Critical Care patient: No
--- NOTE | 2017-01-17 09:53 | CON.GU ---
Consult Consult Specialty:: urology Referred by:: medicine Reason for Consultation:: ureteral calculus - History of Present Illness Chief Complaint: renal colic History of Present Illness: 66 year old male who has a distant history of nephrolithiasis who presents with one day of left sided renal colic,. CT reveals a 5mm Left UVJ stone with hydro. No gross signs of sepsis. - History Source History Provided By: Patient Limitations to Obtaining History: No Limitations - Past Medical History Renal/: Yes: Renal Calculi - Alcohol/Substance Use Hx Alcohol Use: Yes (SOCIAL) - Smoking History Smoking history: Never smoked Home Medications - Allergies Allergies/Adverse Reactions: Allergies Allergy/AdvReac Type Severity Reaction Status Date / Time No Known Allergies Allergy Verified 01/15/17 17:50 - Home Medications Home Medications: Ambulatory Orders Atenolol [Tenormin -] 50 mg PO DAILY 01/15/17 Cyclobenzaprine HCl 0 mg PO 01/15/17 Enalapril Maleate [Vasotec -] 10 mg PO DAILY 01/15/17 Gabapentin 600 mg PO BID 01/15/17 Oxycodone HCl/Acetaminophen [Percocet 5-325 mg Tablet] 1 tab PO BID 01/15/17 Review of Systems - Review of Systems Constitutional: denies: Chills, Fever Genitourinary: reports: Flank Pain (radiating to the testicle) Physical Exam- Vital Signs: Vital Signs Temperature 99.7 F H 01/17/17 06:17 Pulse Rate 80 01/17/17 06:17 Respiratory Rate 20 01/17/17 06:17 Blood Pressure 137/65 01/17/17 06:17 O2 Sat by Pulse Oximetry (%) 95 01/16/17 09:00 Renal/: No: Bladder Distention, CVA Tenderness - Left, CVA Tenderness - Right , [place] Present, Hematuria Labs: CBC, BMP 01/17/17 06:10 01/17/17 06:10 Imaging - Results Cat Scan: Report Reviewed Problem List - Problems (1) Hydronephrosis with urinary obstruction due to ureteral calculus Assessment/Plan: medical expulsive therapy. Based on size and postition, this stone has a 90% chance of passing. If it does not pass then ureteral stenting will be done on 18 Jan 2017. Patient also with hypertenstion which needs to be addressed. Code(s): N13.2 - HYDRONEPHROSIS WITH RENAL AND URETERAL CALCULOUS OBSTRUCTION
[2017-01-17] MEDS: CEFAZOLIN (PRE-DOCKED) 50 ML IVPB SCH ×2 (11:06→17:22)
[2017-01-17] MEDS: ASPIRIN 81 MG CHEWABLE TABLETS PO SCH (11:06)
[2017-01-17] MEDS ORDERED: ACETAMINOPHEN 325 MG TABLET (FP) PO ONE (18:55)
[2017-01-17] MEDS ORDERED: SODIUM CHLORIDE 1,000 ML IV SCH (19:00)
[2017-01-18] MEDS: CEFAZOLIN (PRE-DOCKED) 50 ML IVPB SCH ×2 (00:59→09:49)
--- NOTE | 2017-01-18 07:38 | PN ---
Progress Note (short form) - Note Progress Note: still with pain, for Ureteroscopy, laser lithotripsy and stent placement today Problem List - Problems (1) Hydronephrosis with urinary obstruction due to ureteral calculus Code(s): N13.2 - HYDRONEPHROSIS WITH RENAL AND URETERAL CALCULOUS OBSTRUCTION
[2017-01-18 08:10] LABS: ANION GAP 10 (8-16); CALCIUM 8.5 mg/dL (8.5-10.1); CO2 26 mmol/L (21-32); CREATININE 0.9 mg/dL (0.7-1.3); GLUCOSE,RANDOM 90 mg/dL (74-106)
[2017-01-18 08:18] LABS: BASOPHIL 0.3 % (0-2.0); EOSINOPHIL 0.8 % (0-4.5); MCH 32.1 pg (25.7-33.7); MCHC 35.2 g/dl (32.0-35.9); MEAN CELL VOLUME 91.2 fl (80-96); MEAN PLT VOLUME 8.3 fl (7.5-11.1); NEUTROPHILS 65.9 % (42.8-82.8); PLATELET COUNT 207 K/MM3 (134-434); RDW 12.6 % (11.9-15.9); WHITE BLOOD COUNT 11.2 K/mm3 (4.0-10.0)
[2017-01-18] MEDS: ENALAPRIL MALEATE 10 MG TABLET (FP) PO SCH ×2 (08:48→12:36)
[2017-01-18] MEDS: ATENOLOL 50 MG TABLET (FP) PO SCH ×2 (08:48→12:37)
[2017-01-18] MEDS ORDERED: PROPOFOL 20 ML ONE (10:38)
[2017-01-18] MEDS ORDERED: MIDAZOLAM HCL 2 MG/2 ML SINGLE DOSE VIAL ONE (10:38)
[2017-01-18] MEDS ORDERED: SUCCINYLCHOLINE CHLORIDE 200 MG/10 ML VIAL ONE (10:40)
[2017-01-18] MEDS ORDERED: CEFAZOLIN 1 GM in DEXTROSE 5%-WATER - 50 ML IVPB SCH ×2 (10:55→18:00)
[2017-01-18] MEDS ORDERED: DEXAMETHASONE SOD PHOSPHATE 4 MG/1 ML VIAL ONE (10:56)
--- NOTE | 2017-01-18 11:23 | OP ---
Operative Note - Note: Operative Date: 01/18/17 Pre-Operative Diagnosis: left ureteral calculus Operation: Left ULL, stent Findings: left ureteral stone Surgeon: Doc Livingston
--- NOTE | 2017-01-18 11:42 | OP ---
DATE OF OPERATION: 01/18/2017 SURGEON: Doc Livingston MD ANESTHESIOLOGIST: Leobardo Palma DO ANESTHESIA: General. PREOPERATIVE DIAGNOSES: Left ureteral stone, hydronephrosis, left renal colic. POSTOPERATIVE DIAGNOSES: Left ureteral stone, hydronephrosis, left renal colic. PROCEDURE: Cystoscopy, left ureteroscopy, laser lithotripsy, and ureteral stent placement. FINDINGS: A 5-mm stone in the distal left ureter. DRAINS: A 6 x 26 double-J ureteral stent. ESTIMATED BLOOD LOSS: None. PREOPERATIVE INDICATIONS: A 66-year-old male with left-sided ureteral colic. CT reveals a 4 x 6-mm stone in the distal left ureter. He has failed a trial of passage. He comes to the OR for laser lithotripsy. OPERATION: Patient brought to the OR, placed on the table in the supine position, given general anesthesia, and placed in the modified lithotomy position. The groins were prepped and draped sterilely. Cystoscopy was performed. Urethra and prostate appeared to be unremarkable. The bladder itself also appeared to be normal. The left ureteral orifice was visualized and a wire was passed up into the left kidney. A 10-Niuean dual-lumen catheter was used to dilate the UO and a rigid ureteroscope was passed over a wire into the left ureter. The stone was seen impacted into the left ureter. Using the holmium laser fiber, the stone was broken up into small passable fragments. No other stones were seen along the course of the ureter. Over the remaining wire, a 6 x 26 double-J ureteral stent was placed with 1 loop seen in the kidney on fluoroscopy and 1 loop in the bladder. The bladder was emptied. The patient was woken up. Ro [id number]
[2017-01-18] MEDS ORDERED: ONDANSETRON 4 MG/2 ML VIAL IVPB PRN (11:50)
[2017-01-18] MEDS ORDERED: morphine CARPU-JECT 2 MG/1 ML DISP.SYRIN IVPUSH PRN (11:50)
[2017-01-18] MEDS ORDERED: SODIUM CHLORIDE 1,000 ML IV SCH (11:50)
[2017-01-18] MEDS ORDERED: Methylnaltrexone Bromide 12 MG/0.6 ML KIT SQ ONE (12:05)
--- NOTE | 2017-01-18 12:05 | PN ---
Teaching Attending Note Name of Resident: Yves Huber ATTENDING PHYSICIAN STATEMENT I saw and evaluated the patient. I reviewed the resident's note and discussed the case with the resident. I agree with the resident's findings and plan as documented. SUBJECTIVE:pain has improved. has not recovered stone on straining. denies CP, SOB, fever, chills, N/V/C/D OBJECTIVE: Last Vital Signs Temp Pulse Resp BP Pulse Ox 98.2 F 92 H 18 167/93 96 01/18/17 09:00 01/18/17 09:00 01/18/17 09:00 01/18/17 09:00 01/17/17 09:00 General NAD Abdomen soft NT/ND, no suprapubic discomfort ASSESSMENT AND PLAN: 66yo M with PMH HTN presented to the ER with L flank pain and found to have L sided nephrolithasis 1. L nephrolithasis with hydroureter- improved. s/p stent placement. completed 3 days of abx treatment and not needed on discharge. follow up with urology as outpatient. 3. HTN- uncontrolled. pain is now controlled. will increase enalapril to 20mg. 4. dvt ppx- EAM 5. d/c home
[2017-01-18] MEDS ORDERED: ENALAPRIL MALEATE 10 MG TABLET (FP) PO ONE ×3 (12:15→15:15)
[2017-01-18] MEDS: ASPIRIN 81 MG CHEWABLE TABLETS PO SCH (12:35)
[2017-01-18] MEDS: TAMSULOSIN HCL 0.4 MG CAP.ER.24H (FP) PO SCH (12:35)
[2017-01-18] MEDS: POLYETHYLENE GLYCOL 3350 119 GM BTL PO SCH (12:36)
[2017-01-18] MEDS: CYCLOBENZAPRINE HCL 10 MG TABLET (FP) PO SCH (12:36)
[2017-01-18] MEDS: GABAPENTIN 300 MG CAPSULE (FP) PO SCH (12:37)
[2017-01-18 13:55] VITALS: BP 150/96; PULSE 81; TEMP 98.2
--- NOTE | 2017-01-18 15:25 | DS ---
Physical Exam: SUBJECTIVE: Patient seen and examined Patient was evaluated by urology this morning. He was found to have pain and was taken for ureteroscopy, lithotripsy, and stent placement. OBJECTIVE: Vital Signs Period Temp Pulse Resp BP Sys/[place] Pulse Ox Last 24 Hr 97.9 F-100.6 F 68-95 16-20 150-170/76-96 96-98 PHYSICAL EXAM GENERAL: The patient is awake, alert, and fully oriented, in no acute distress. HEAD: Normal with no signs of trauma. EYES: extraocular movements intact, sclera anicteric, conjunctiva clear. ENT: oropharynx clear without exudates, moist mucous membranes. LUNGS: Breath sounds equal, clear to auscultation bilaterally, no wheezes, no crackles, no accessory muscle use. HEART: Regular rate and rhythm, S1, S2 without murmur, rub or gallop. ABDOMEN: Soft, nontender, nondistended, normoactive bowel sounds, no guarding, no rebound, no hepatosplenomegaly, no masses, no flank pain NEUROLOGICAL: Normal speech, gait not observed. PSYCH: Normal mood, normal affect. LABS Laboratory Results - last 24 hr 01/18/17 01/18/17 06:10 06:10 WBC 11.2 H RBC 4.18 Hgb 13.4 Hct 38.2 MCV 91.2 MCHC 35.2 RDW 12.6 Plt Count 207 MPV 8.3 Neutrophils % 65.9 Lymphocytes % 23.5 D Monocytes % 9.5 Eosinophils % 0.8 Basophils % 0.3 Sodium 143 Potassium 3.9 Chloride 107 Carbon Dioxide 26 Anion Gap 10 BUN 11 D Creatinine 0.9 D Random Glucose 90 Calcium 8.5 HOSPITAL COURSE: Date of Admission:01/15/17 Date of Discharge: 01/18/17 66 year old M admitted for L nephrolithiasis was found to have a 5mm stone on CT abdomen. Patient was medically managed. Urology was consulted after no improvement. KUB showed no stone. After no improvement in pain despite medical management, urology performed ureteroscopy, laser lithoripsy, and stent placement on 01/18/17. Patient's pain improved and was stable for discharge. During his course, patient had a white count of 12.4 and was started on a 3 day course of antibiotics (1 dose of IV Rocephin 1gm followed by 2 days of IV Ancef 1gm), which he completed on day of discharge. No outpatient antibiotics are required at this time. Patient had poorly controlled hypertension throughout his admission. He was still hypertensive following pain relief. His Vasotec was increased to 20gm daily on discharge. Minutes to complete discharge: 30 Discharge Summary Reason For Visit: RENAL COLIC Current Active Problems PAULINA (acute kidney injury) (Acute) HTN (hypertension) (Acute) Hydronephrosis with urinary obstruction due to ureteral calculus (Acute) Nephrolithiasis (Acute) Renal colic (Acute) Condition: Improved - Instructions Diet, Activity, Other Instructions: -Follow up with Dr. Migeul Bonilla (primary care doctor) in 1 week. -Follow up with Dr. Doc Livingston (Urologist) in 1 week regarding stent. -Drink plenty of water over the next week. -Please make sure you have a bowel movement once you leave the hospital. Take over the counter miralax 17g mixed with 1 cup of water for maximum 2 times per day if you are having trouble with having a bowel movement. If you do not have a bowel movement within 2 days or have severe nausea, vomiting, or abdominal pain, call your primary care doctor immediately. -Start taking Vasotec 20 mg a day. Follow up with Dr. Bonilla regarding your blood pressure. -continue flomax 0.4mg daily. stop once instructed to by urology -Continue taking all other home medications: -Atenolol 50 mg 1 tablet daily -Oxycodone-Acetomenophin 5-325 mg 1 tablet three times per day -Gabapentin 600 mg (two 300 mg tablets) two times per day -Cyclobenzaprine 5 mg 1 tablet two times per day -Aspirin 81 mg 1 tablet daily -If you have chest pain, shortness of breath, or any new symptoms please return to the hospital. Referrals: Miguel Bonilla [Non Staff, Medical] - 1 Week Doc Livingston MD [Staff Physician] - 1 Week Disposition: HOME - Home Medications Comprehensive Discharge Medication List: Ambulatory Orders Atenolol [Tenormin -] 50 mg PO DAILY 01/15/17 Cyclobenzaprine HCl 5 mg PO BID 01/15/17 Gabapentin 600 mg PO BID 01/15/17 Oxycodone HCl/Acetaminophen [Percocet 5-325 mg Tablet] 1 tab PO TID 01/15/17 Aspirin [ASA -] 81 mg PO DAILY 01/18/17 Enalapril Maleate [Vasotec] 20 mg PO DAILY #30 tablet 01/18/17 Tamsulosin HCl [Flomax -] 0.4 mg PO DAILY@0830 #30 cap 01/18/17 This patient is new to me today: No Emergency Visit: No Critical Care patient: No - Discharge Referral Referred to [facility] No
[2017-01-18] MEDS ORDERED: CYCLOBENZAPRINE HCL 10 MG TABLET (FP) PO SCH (22:00)
[2017-01-18] MEDS ORDERED: TAMSULOSIN HCL 0.4 MG CAP.ER.24H (FP) PO SCH (22:00)
[2017-01-18] MEDS ORDERED: GABAPENTIN 300 MG CAPSULE (FP) PO SCH (22:00)
[2017-01-18] MEDS ORDERED: POLYETHYLENE GLYCOL 3350 119 GM BTL PO SCH (22:00)
[2017-01-19] MEDS ORDERED: ASPIRIN 81 MG CHEWABLE TABLETS PO SCH (10:00)
[2017-01-19] MEDS ORDERED: ENALAPRIL MALEATE 10 MG TABLET (FP) PO SCH (10:00)
[2017-01-19] MEDS ORDERED: ATENOLOL 50 MG TABLET (FP) PO SCH (10:00)
== END 2017-01-18 16:46 | disposition home or self-care (01) | DRG 660 ==
LOC: JER 17:46 → JERBED 22:11 → J8W 23:48
PROVIDERS: ADMIT Internal Medicine; ATTEND Internal Medicine
PROC: 0TC73ZZ Extirpation of Matter from Left Ureter, Percutaneous Approach (ICD-10-PCS; principal; 2017-01-18 11:00)
PROC: 0T778DZ Dilation of Left Ureter with Intraluminal Device, Via Natural or Artificial Opening Endoscopic (ICD-10-PCS; 2017-01-18 11:00)
DX: N13.2 Hydronephrosis with renal and ureteral calculous obstruction (principal); N17.9 Acute kidney failure, unspecified; I10 Essential (primary) hypertension; R31.9 Hematuria, unspecified; D72.829 Elevated white blood cell count, unspecified; M54.5 Low back pain
CPT/HCPCS: 36415; 71020-TC; 74000-TC; 74176-TC; 76000-TC; 76775-TC; 80048; 80053; 81003; 81015; 85025; 85027; 85610; 93005; 93010; 94760; 99284-25

== ENCOUNTER 2017-03-13 05:06 | Inpatient (IN) | payer OTHER, BC ==
[2017-03-06 15:29] VITALS: BMI 29.8
--- NOTE | 2017-03-13 07:38 | HP ---
History & Physical Update - History History: No Change - Physical Physical: No Change - Assessment Assessment: No Change - Plan Plan: No Change (This is my first time meeting the patient. I have informed him that I will be assisting Dr. Flynn with todays procedure.)
[2017-03-13] MEDS ORDERED: CEFAZOLIN 2 GM in DEXTROSE 5%-WATER - 100 ML IVPB ONE (07:39)
[2017-03-13] MEDS ORDERED: BUPIVACAINE HCL/PF 0.5% (5MG/ML) 10 ML VIAL ONE (07:44)
[2017-03-13] MEDS ORDERED: MIDAZOLAM HCL 2 MG/2 ML SINGLE DOSE VIAL ONE (08:19)
[2017-03-13] MEDS ORDERED: ROCURONIUM BROMIDE 50 MG/5 ML VIAL ONE (08:21)
[2017-03-13] MEDS ORDERED: PROPOFOL 20 ML ONE ×2 (08:21)
[2017-03-13] MEDS ORDERED: ceFAZolin SODIUM 1 GM VIAL IVPB ONE (08:24)
[2017-03-13] MEDS ORDERED: SUCCINYLCHOLINE CHLORIDE 200 MG/10 ML VIAL ONE (08:24)
--- NOTE | 2017-03-13 08:30 | PN ---
Progress Note (short form) - Note Progress Note: NEUROSURGERY PRE-OP Incisions marked Procedure explained again All questions answered For R L2-3 and B L4-5 decompression Risks and benefits explained
[2017-03-13] MEDS ORDERED: ceFAZolin SODIUM 1 GM VIAL ONE ×2 (08:52→17:43)
[2017-03-13] MEDS ORDERED: METOPROLOL TARTRATE 5 MG/5 ML VIAL ONE (09:06)
[2017-03-13] MEDS ORDERED: THROMBIN (BOVINE) 5,000 UNIT VIAL TP ONE (09:09)
[2017-03-13] MEDS ORDERED: BACITRACIN 50,000 UNITS VIAL NR ONE (09:10)
[2017-03-13] MEDS ORDERED: BUPIVACAINE HCL/PF 0.5% (5MG/ML) 10 ML VIAL IJ ONE (09:11)
[2017-03-13] MEDS ORDERED: DEXAMETHASONE SOD PHOSPHATE 4 MG/1 ML VIAL ONE (09:34)
[2017-03-13] MEDS ORDERED: ONDANSETRON 4 MG/2 ML VIAL ONE (09:34)
[2017-03-13] MEDS ORDERED: LIDOCAINE HCL/PF 2% SDV 5ML VIAL ONE (09:34)
[2017-03-13] MEDS ORDERED: GLYCOPYRROLATE 0.2 MG/1 ML VIAL ONE (09:34)
[2017-03-13] MEDS ORDERED: NEOSTIGMINE METHYLSULFATE 0.5 MG/ML - 10 ML MDV ONE (11:01)
[2017-03-13] MEDS ORDERED: BACITRACIN 15 GM TUBE TOPICAL OINTMENT ONE (11:46)
[2017-03-13] MEDS ORDERED: BISACODYL 10 MG SUPP.RECT RC PRN (11:49)
[2017-03-13] MEDS ORDERED: ONDANSETRON 4 MG/2 ML VIAL IVPB PRN (11:49)
--- NOTE | 2017-03-13 11:49 | OP ---
Operative Note - Note: Operative Date: 03/13/17 Pre-Operative Diagnosis: L2-3 and L4-5 stenosis; radiculopathy Operation: B L4-L5 partial laminectomies with medial facetectomies and foramentomies for decompression of thecal sac and B L4 and L5 roots; R L2-3 partial laminectomies, medial facetectomy and foramentomy for decompression of thecal sac and R L2 and L3 roots; microsurgical dissection Findings: thinned dura L4-5 > L2-3; dural defect in R L4-5 lateral recess near lateral dural surface Implants: Duragen and Duraseal Post-Operative Diagnosis: Same as Pre-op Surgeon: Doc Flynn Bond Underwriter: Bradley Flores Anesthesiologist/ROTOGRAVURE PRESS OPERATOR: Cathy Peoples MD Anesthesia: General Estimated Blood Loss (mls): 50 Operative Report Dictated: Yes
[2017-03-13] MEDS ORDERED: D5-1/2NS+20 MEQ KCL - 1,000 ML IV SCH (12:00)
--- NOTE | 2017-03-13 12:03 | SURG ---
Surgery Senior Materials Analyst Note Senior Materials Analyst: Bradley Flores PA-C Date of Service: 03/13/17 Diagnosis: L2/3 and L4/5 stenosis; radiculopathy Procedure: Bilateral L4-L5 partial laminectomies with medial facetectomies and foramentomies for decompression of thecal sac and bilateral L4 and L5 roots; Right L2-L3 partial laminectomies, medial facetectomy and foramentomy for decompression of thecal sac and right L2 and L3 roots; microsurgical dissection I was present for the entirety of the operative procedure. For further detail, please refer to operative report. Visit type - Case Type Case Type: Scheduled Admission - New patient This patient is new to me today: Yes Date on this admission: 03/13/17
[2017-03-13] MEDS ORDERED: HYDROmorphone *PCA* 10MG/50ML DISP.SYRIN PCA ONE (12:15)
[2017-03-13] MEDS ORDERED: DEXAMETHASONE SOD PHOSPHATE 4 MG/1 ML VIAL IVPUSH PRN (12:17)
[2017-03-13] MEDS ORDERED: PROMETHAZINE HCL 25 MG/1 ML VIAL IVPB PRN (12:17)
--- NOTE | 2017-03-13 12:20 | PN ---
Progress Note (short form) - Note Progress Note: NEUROSURGERY IN PACU AF, VSS; O2 sat 100% CV- RRR; Lungs- CTA B; Abd- benign; Ext- no sign of DVT Slightly drowsy CN- intact; Motor 4+ at least B LE; Sensation grossly intact LT Dressings intact/dry Intra-op findings d/w patient's Bedrest x 24 hours (HOB flat) CONVEX GRINDER for pain More extended hospital stay anticipated because of intra-op findings
[2017-03-13 12:45] LABS: MCH 30.8 pg (25.7-33.7); MCHC 33.3 g/dl (32.0-35.9); MEAN CELL VOLUME 92.5 fl (80-96); MEAN PLT VOLUME 7.7 fl (7.5-11.1); PLATELET COUNT 285 K/MM3 (134-434); RDW 12.9 % (11.9-15.9); WHITE BLOOD COUNT 13.9 K/mm3 (4.0-10.0)
[2017-03-13 13:14] LABS: ANION GAP 9 (8-16); CALCIUM 8.8 mg/dL (8.5-10.1); CO2 25 mmol/L (21-32); CREATININE 1.2 mg/dL (0.7-1.3); GLUCOSE,RANDOM 142 mg/dL (74-106)
[2017-03-13] MEDS ORDERED: SIMETHICONE 80 MG TAB.CHEW (FP) ONE (13:17)
[2017-03-13] MEDS: DOCUSATE SODIUM 100 MG CAPSULE (FP) PO SCH ×2 (15:08→22:11)
[2017-03-13] MEDS: HYDROmorphone *PCA* 10MG/50ML DISP.SYRIN PCA SCH (15:10)
[2017-03-13] MEDS: D5-1/2NS+20 MEQ KCL - 1,000 ML IV SCH (15:10)
[2017-03-13] MEDS: diazePAM 5 MG TABLET PO SCH ×2 (15:12→22:11)
[2017-03-13] MEDS: LACTATED RINGERS SOLUTION 1,000 ML IV SCH (15:15)
[2017-03-13] MEDS ORDERED: DEXTROSE 5%-WATER - 50 ML IVPB ONE (17:44)
[2017-03-13] MEDS: CEFAZOLIN 1 GM in DEXTROSE 5%-WATER - 50 ML IVPB SCH (17:48)
[2017-03-13] MEDS ORDERED: CEFAZOLIN (PRE-DOCKED) 50 ML IVPB SCH (18:00)
--- NOTE | 2017-03-13 18:17 | PN ---
Progress Note (short form) - Note Progress Note: NEUROSURGERY On floor care Legs feeling better already AF, VSS CV- RRR; Lungs- CTA B; Abd- benign; Ext- no sign of DVT Slightly drowsy CN- intact; Motor 4+ at least B LE; Sensation grossly intact LT Dressing on top with bloody drainage- cleaned and changed with RN Intra-op findings d/w patient's Bedrest x 24 hours (HOB flat) till later tomorrow SOLDERING MACHINE SETTER for pain
[2017-03-13] MEDS ORDERED: PT OWN MED DRAWER 7, Y5N ONE (21:44)
[2017-03-13] MEDS ORDERED: PATIENT'S OWN MEDICATION (NON-FORMULARY) (Gabapentin [Gabapentin] 600 MG) PO SCH (22:00)
[2017-03-13] MEDS: GABAPENTIN 300 MG CAPSULE (FP) PO SCH (22:11)
[2017-03-14] MEDS ORDERED: ceFAZolin SODIUM 1 GM VIAL ONE ×2 (01:45→10:13)
[2017-03-14] MEDS ORDERED: DEXTROSE 5%-WATER - 50 ML IVPB ONE ×2 (01:46→10:13)
[2017-03-14] MEDS: CEFAZOLIN 1 GM in DEXTROSE 5%-WATER - 50 ML IVPB SCH ×2 (01:54→10:18)
[2017-03-14] MEDS: diazePAM 5 MG TABLET PO SCH ×3 (05:40→22:11)
[2017-03-14] MEDS: DOCUSATE SODIUM 100 MG CAPSULE (FP) PO SCH ×3 (05:40→22:11)
[2017-03-14] MEDS ORDERED: HYDROmorphone *PCA* 10MG/50ML DISP.SYRIN PCA ONE (07:02)
--- NOTE | 2017-03-14 07:32 | PN ---
Progress Note (short form) - Note Progress Note: NEUROSURGERY Tmax 98.1, VSS Incisional pain Lockhart inserted overnight Legs feeling better already; minimal paresthesia AF, VSS CV- RRR; Lungs- CTA B; Abd- benign; Ext- no sign of DVT CN- intact; Motor 4+ at least B LE; Sensation grossly intact LT Dressing on bottom (of L2-3 incision) with slight serosangrenous drainage- cleaned and changed with RN WBC 13.8; Hgb 13,8; Cr 1.2 Intra-op findings d/w patient again Adv diet as tolerated Bedrest x 24 hours (HOB flat) till later today MOTOR EQUIPMENT COMMANDING OFFICER for pain
--- NOTE | 2017-03-14 08:41 | PN ---
Progress Note (short form) - Note Progress Note: Anesthesia postop note 66 y/o M s/p GA for Lumbar laminectomy, dilaudid log handling equipment operator for postop pain management POD#1, vss, aaox3, pain well controlled with log handling equipment operator Will continue log handling equipment operator today.
[2017-03-14] MEDS ORDERED: PATIENT'S OWN MEDICATION (NON-FORMULARY) (Enalapril Maleate [Vasotec] 20 MG) PO SCH (10:00)
[2017-03-14] MEDS: GABAPENTIN 300 MG CAPSULE (FP) PO SCH ×2 (10:17→22:11)
[2017-03-14] MEDS: ATENOLOL 50 MG TABLET (FP) PO SCH (10:18)
[2017-03-14] MEDS: ENALAPRIL MALEATE 10 MG TABLET (FP) PO SCH (10:18)
[2017-03-14] MEDS: D5-1/2NS+20 MEQ KCL - 1,000 ML IV SCH ×3 (10:42→22:16)
--- NOTE | 2017-03-14 13:19 | OP ---
DATE OF OPERATION: 03/13/2017 PREOPERATIVE DIAGNOSES: 1. Right greater than left L2-3 and bilateral L4-5 stenosis with lower back pain and lumbar radiculopathy right greater than left. 2. Hypertension. POSTOPERATIVE DIAGNOSES: 1. Right greater than left L2-3 and bilateral L4-5 stenosis with lower back pain and lumbar radiculopathy right greater than left. 2. Hypertension. ATTENDING SURGEON: Doc Hawley MD TUBE TEST TECHNICIAN: MALLORY Herron ANESTHESIA: General endotracheal. ANESTHESIOLOGIST: Cathy Peoples MD ESTIMATED BLOOD LOSS: 50 mL. PROCEDURE: 1. Right L2 and L3 partial laminectomies including medial facetectomy and foraminotomy as well as undercutting of the lamina on the left for spinal stenosis (41422, [id number]). 2. Bilateral partial L4 and L5 laminectomies for spinal canal decompression and lateral recess decompression including medial facetectomy and foraminotomy for decompression of thecal sac as well as bilateral L4 and L5 nerve roots ([id number]; [id number]). 3. Microsurgical dissection with operating microscope and microsurgical techniques (40078). FINDINGS: 1. Moderate to marked stenosis at L2-3 and L4-5. 2. Existing left lateral dural defect around the left L5 region. INDICATION: The patient is a 66-year-old male who has previously experienced lower back pain and lumbar radiculopathy. Because of his continuing intractable symptoms and failure of conservative treatment including multiple epidural steroid injections over the last 4 years, he is consented for a lumbar decompression at L2-3 and L4 -5. MRI had demonstrated stenosis at both these levels. The patient understands the risks of the surgery including but not limited to bleeding, infection, dural tear with CSF leak, neurological injury, increased thromboembolic risk, and other risks of general anesthesia. The patient understands the indications for the procedure, procedure in detail, risks and benefits and the alternatives for treatment of his lumbar condition, including no surgery, and wishes to proceed. No guarantees were given for a favorable outcome. PROCEDURE IN DETAIL: After the patient was taken to the operating room, he was placed in supine position. After general anesthesia was induced and appropriate lines were placed, he was turned in a prone position on a Tani frame. Oxygen saturation of bilateral lower extremities was checked and was 100%. Location near the lumbar region was cleaned with alcohol and prepped with Betadine. A localizing x-ray was obtained at L2-3 and L4-5 with spinal needle. After the position was verified, approximately 2-inch incision was opened at L2-3 and L4-5, respectively. The top incision was first opened. The spinous process was quite hypertrophied , was burred down with high-speed pneumatic drill on the right-hand side. The subperiosteal dissection was carried out with periosteal elevator and monopolar electrocautery. A self-retaining retractor was inserted at L2-3. Attention was then turned to the L4-5 space, where the skin incision was opened. Similarly with about a 2- to 2-1/2-inch incision, subperiosteal dissection was carried out bilaterally with periosteal elevator and monopolar electrocautery. A self-retaining retractor was once again inserted. Clamp was placed at L2-3 and L4-5 and was verified on imaging studies. After position of the clamp was verified, attention was turned to the right L2-3 interlaminar space. Partial right L2 and L3 laminectomy was carried out with high-speed pneumatic drill, angled curet, and Kerrison rongeur. A portion of about 20% of medial facetectomy was also carried out on the left side. The underlying ligamentum flavum was quite thickened and was dissected free with angled curet and resected with Kerrison rongeur. This portion of the procedure was performed with use of the operative microscope with both illumination and magnification. Microsurgical techniques were utilized. The central portion of the spinal canal was also decompressed by undercutting a central portion of the spinous process as well as the contralateral lamina to decompress the central portion of the spinal canal adequately. Foraminotomy was carried out with angled curet and Kerrison rongeur to decompress the thecal sac and the right L3 and L3 nerve roots. This was done satisfactorily. Intermittent irrigation with antibiotic and irrigation was carried out. Epidural hemostasis was obtained with bipolar electrocautery. The epidural space was explored with dental tool and then was felt to be wide open after decompression was completed. Attention was turned to the L4-5 level bilaterally, where partial laminectomy of the bottom of L4 and top of L5 laminae was carried out with high-speed pneumatic drill and angled curet. The procedure was performed first on the right-hand side. The underlying ligamentum flavum was very thickened, and it was dissected free with angled curet before being resected with Kerrison rongeur. Foraminotomy was carried for L4 and L5 nerve roots. Some minimal amount of medial facetectomy was carried out to reduce the destabilizing effect of the decompressive procedure. Epidural hemostasis was obtained with bipolar electrocautery. After the right side decompression was completed, the thecal sac was pulsing nicely with CSF pulsation. Attention was then turned to the left side of the interlaminar space where partial laminectomy was similarly carried out as the right side. Upon opening ligamentum flavum, it was dissected from medially to laterally to gain access to the epidural space and lumbar roots. Immediately upon reflection of the ligamentum flavum, some clear fluid was noted coming from the lateral gutter even before the dissection proceeded to that area. This was felt that this might be an existing CSF fistula. The underlying ligamentum flavum was dissected further. Ligamentum flavum was dissected after cottonoids were placed on top of the dura. The ligamentum flavum was resected with Kerrison rongeur, and foraminotomy was carried out to decompress the L4 and L5 nerve roots on the left side as well as thecal sac. Microsurgical dissection was carried out. Further exploration laterally after medial facetectomy was carried out identified a fairly irregular shape dural opening laterally to the dural sac at the L4-5 level on the left. It was not a felt to be easily closeable without causing constriction on the nerve roots. It was therefore packed temporarily with Gelfoam. After the decompression of the spinal canal and the nerve roots was completed, a piece of DuraGen was cut to the appropriate size and placed in the lateral recess. It was then sealed with a layer of DuraSeal. A thin layer of DuraSeal was also layered in the epidural space on the right side at L4-5 as a precaution. At this point, wound was irrigated with copious amount of antibiotic-containing irrigation. Both the incisions were closed at the fascial level with 0 Vicryl interrupted sutures. The closure was made bilaterally at L4 -5, and another layer of running suture essentially was placed to reinforce the closure. Subcutaneous fascia was closed with 3-0 Vicryl suture. Skin was closed with 4- 0 Vicryl running subcuticular suture for both incisions. Steri-Strips and sterile dressing were applied for each incision. The patient tolerated the procedure well, was returned back to supine position and extubated. He will remain supine in bed for 24 hours after surgery. The patient was straight catheterized prior to being moved out of the operating room. He was moving bilateral lower extremities in recovery. All needle and lap counts were correct. The OR timeout procedure was followed. Intraoperative findings were communicated with the patient and his . The patient received 1 dose of 2 g of Ancef prior to incision. DOC HAWLEY M.D. [id number] MTDD
[2017-03-14] MEDS: HYDROmorphone *PCA* 10MG/50ML DISP.SYRIN PCA SCH (14:12)
[2017-03-14] MEDS: LACTATED RINGERS SOLUTION 1,000 ML IV SCH (14:12)
[2017-03-15] MEDS ORDERED: HYDROmorphone *PCA* 10MG/50ML DISP.SYRIN PCA ONE (01:36)
[2017-03-15] MEDS: HYDROmorphone *PCA* 10MG/50ML DISP.SYRIN PCA SCH (01:45)
[2017-03-15] MEDS: ACETAMINOPHEN 325 MG TABLET (FP) PO PRN (01:51)
[2017-03-15] MEDS: DOCUSATE SODIUM 100 MG CAPSULE (FP) PO SCH ×3 (06:04→22:19)
[2017-03-15] MEDS: diazePAM 5 MG TABLET PO SCH ×3 (06:04→22:19)
--- NOTE | 2017-03-15 07:41 | PN ---
Progress Note (short form) - Note Progress Note: NEUROSURGERY POD #2 Tmax 100.1, VSS Incisional pain Rasmussen inserted overnight Legs feeling better ; some post thigh pulling pain CV- RRR; Lungs- CTA B; Abd- benign; Ext- no sign of DVT CN- intact; Motor 4+ at least B LE; Sensation grossly intact LT Dressing on bottom (of L2-3 incision) with slight serosangrenous drainage- cleaned and changed with wider dressing RN; skin sensitive Adv diet Change to Nucynta PO Keflex Check urine/urine culture, d/c rasmussen Bowel regimen Decadron x1 for inflammation
[2017-03-15] MEDS ORDERED: DEXAMETHASONE SOD PHOSPHATE 4 MG/1 ML VIAL IVPB ONE (08:35)
--- NOTE | 2017-03-15 08:43 | PN ---
Progress Note, Physician Chief Complaint: Pt. still having pain, but not controlled adequately with BIOFUELS PLANT OPERATIONS ENGINEER. - Current Medication List Current Medications: Active Medications Acetaminophen (Tylenol -) 650 mg PO Q6H PRN PRN Reason: FEVER Last Admin: 03/15/17 01:51 Dose: 650 mg Atenolol (Tenormin -) 50 mg PO DAILY [facility] Last Admin: 03/14/17 10:18 Dose: 50 mg Bisacodyl (Dulcolax Suppository -) 10 mg RC DAILY PRN PRN Reason: CONSTIPATION Cephalexin HCl (Keflex -) 500 mg PO Q6HPO [facility] Dexamethasone Sodium Phosphate (Decadron Injection -) 4 mg IVPUSH ONCE PRN PRN Reason: NAUSEA AND/OR VOMITING Diazepam (Valium -) 5 mg PO TID [facility] Last Admin: 03/15/17 06:04 Dose: 5 mg Docusate Sodium (Colace -) 100 mg PO TID [facility] Last Admin: 03/15/17 06:04 Dose: 100 mg Enalapril Maleate (Vasotec -) 20 mg PO DAILY [facility] Last Admin: 03/14/17 10:18 Dose: 20 mg Gabapentin (Neurontin -) 600 mg PO BID [facility] Last Admin: 03/14/17 22:11 Dose: 600 mg Potassium Chloride/Dextrose/Sod Cl (D5-1/2ns+20 Meq Kcl -) 1,000 mls @ 100 mls/ hr IV ASDIR [facility] Last Admin: 03/14/17 22:16 Dose: 100 mls/hr Potassium Chloride/Dextrose/Sod Cl (D5-1/2ns+20 Meq Kcl -) 1,000 mls @ 42 mls/ hr IV ASDIR [facility] Lactated Ringer's (Lactated Ringers Solution) 1,000 mls @ 75 mls/hr IV ASDIR [facility] Last Admin: 03/14/17 14:12 Dose: Not Given Magnesium Citrate (Citroma -) 300 ml PO ONCE ONE Stop: 03/15/17 08:46 Ondansetron HCl (Zofran Injection) 4 mg IVPB Q6H PRN PRN Reason: NAUSEA AND/OR VOMITING Promethazine HCl (Phenergan Injection -) 12.5 mg IVPB Q6H PRN PRN Reason: NAUSEA AND/OR VOMITING Tapentadol (Nucynta -) 50 mg PO Q4H PRN PRN Reason: PAIN - Objective Vital Signs: Vital Signs Temperature 98.3 F 03/15/17 06:33 Pulse Rate 77 03/15/17 06:33 Respiratory Rate 20 03/15/17 06:33 Blood Pressure 150/76 03/15/17 06:33 O2 Sat by Pulse Oximetry (%) 98 03/14/17 21:00 Constitutional: Yes: Well Nourished, No Distress, Calm Neurological: Yes: WNL, Alert, Oriented Labs: CBC, BMP 03/13/17 12:15 03/13/17 12:15 Assessment/Plan POD#1 s/p L2-3, L4-5 Lumbar laminectomy under GA. Doing well. D/C BIOFUELS PLANT OPERATIONS ENGINEER and start oral medication by Dr. Flynn.
[2017-03-15] MEDS ORDERED: MAGNESIUM CITRATE 300 ML BOTTLE PO ONE (08:45)
[2017-03-15 09:19] LABS: BASOPHIL 0.6 % (0-2.0); EOSINOPHIL 0.5 % (0-4.5); MCH 30.9 pg (25.7-33.7); MCHC 34.2 g/dl (32.0-35.9); MEAN CELL VOLUME 90.3 fl (80-96); MEAN PLT VOLUME 7.8 fl (7.5-11.1); NEUTROPHILS 65.9 % (42.8-82.8); PLATELET COUNT 256 K/MM3 (134-434); RDW 12.5 % (11.9-15.9); WHITE BLOOD COUNT 14.7 K/mm3 (4.0-10.0)
[2017-03-15 09:51] LABS: URINE APPEARANCE SLCLOUDY; URINE BILIRUBIN NEGATIVE (NEGATIVE); URINE BLOOD 2+ (NEGATIVE); URINE COLOR LTYELLOW; URINE GLUCOSE (UA) NEGATIVE (NEGATIVE); URINE KETONE NEGATIVE (NEGATIVE); URINE LEUK ESTERASE NEGATIVE (NEGATIVE); URINE NITRITE NEGATIVE (NEGATIVE); URINE PROTEIN NEGATIVE (NEGATIVE); URINE UROBILINOGEN NEGATIVE mg/dL (0.2-1.0)
[2017-03-15 09:56] LABS: URINE MUCUS RARE; URINE RBC 8 /hpf (0-3); URINE WBC 1 /hpf (3-5)
[2017-03-15] MEDS: ENALAPRIL MALEATE 10 MG TABLET (FP) PO SCH (10:16)
[2017-03-15] MEDS: TAPENTADOL HYDROCHLORIDE 50 MG TABLET PO PRN ×4 (10:16→22:15)
[2017-03-15] MEDS: GABAPENTIN 300 MG CAPSULE (FP) PO SCH ×2 (10:16→22:19)
[2017-03-15] MEDS: ATENOLOL 50 MG TABLET (FP) PO SCH (10:17)
[2017-03-15] MEDS: D5-1/2NS+20 MEQ KCL - 1,000 ML IV SCH ×3 (10:23→22:17)
[2017-03-15] MEDS: CEPHALEXIN MONOHYDRATE 500 MG CAPSULE (UD) PO SCH ×2 (11:32→18:40)
[2017-03-15] MEDS: LACTATED RINGERS SOLUTION 1,000 ML IV SCH (16:31)
[2017-03-16] MEDS: CEPHALEXIN MONOHYDRATE 500 MG CAPSULE (UD) PO SCH ×4 (00:16→17:19)
[2017-03-16] MEDS: ACETAMINOPHEN 325 MG TABLET (FP) PO PRN (00:17)
[2017-03-16] MEDS: DOCUSATE SODIUM 100 MG CAPSULE (FP) PO SCH ×3 (06:32→22:13)
[2017-03-16] MEDS: TAPENTADOL HYDROCHLORIDE 50 MG TABLET PO PRN ×4 (06:32→22:12)
[2017-03-16] MEDS: diazePAM 5 MG TABLET PO SCH ×3 (06:32→22:13)
--- NOTE | 2017-03-16 08:55 | PN ---
Progress Note (short form) - Note Progress Note: NEUROSURGERY POD #2 Up with PT + BM, Incisional pain Able to void Legs feeling better ; some post thigh pulling pain E; AF, Tmax 99.2, VSS CV- RRR; Lungs- CTA B; Abd- benign; Ext- no sign of DVT CN- intact; Motor 4+ at least B LE; Sensation grossly intact LT Dressing with no drainage Adv diet On PRN Nucynta On PO Keflex Bowel regimen
[2017-03-16] MEDS: ATENOLOL 50 MG TABLET (FP) PO SCH (09:32)
[2017-03-16] MEDS: ENALAPRIL MALEATE 10 MG TABLET (FP) PO SCH (09:32)
[2017-03-16] MEDS: GABAPENTIN 300 MG CAPSULE (FP) PO SCH ×2 (09:32→22:12)
[2017-03-16] MEDS: D5-1/2NS+20 MEQ KCL - 1,000 ML IV SCH ×2 (09:36→13:39)
[2017-03-16] MEDS ORDERED: MEPERIDINE HCL CARPU-JECT 75 MG/1 ML DISP.SYRIN IM ONE (15:30)
[2017-03-16] MEDS ORDERED: diazePAM 5 MG TABLET PO ONE (17:02)
[2017-03-16] MEDS ORDERED: DEXAMETHASONE SOD PHOSPHATE 4 MG/1 ML VIAL IVPUSH ONE (17:02)
[2017-03-17] MEDS: CEPHALEXIN MONOHYDRATE 500 MG CAPSULE (UD) PO SCH ×4 (00:50→16:57)
[2017-03-17] MEDS: GABAPENTIN 300 MG CAPSULE (FP) PO SCH ×2 (05:42→13:50)
[2017-03-17] MEDS: diazePAM 5 MG TABLET PO SCH ×2 (05:43→13:51)
[2017-03-17] MEDS: TAPENTADOL HYDROCHLORIDE 50 MG TABLET PO PRN ×3 (05:43→13:51)
[2017-03-17] MEDS: DOCUSATE SODIUM 100 MG CAPSULE (FP) PO SCH ×2 (05:44→13:50)
[2017-03-17 07:35] LABS: BASOPHIL 0.5 % (0-2.0); EOSINOPHIL 0.4 % (0-4.5); MCH 31.8 pg (25.7-33.7); MCHC 35.1 g/dl (32.0-35.9); MEAN CELL VOLUME 90.6 fl (80-96); MEAN PLT VOLUME 8.2 fl (7.5-11.1); NEUTROPHILS 65.2 % (42.8-82.8); PLATELET COUNT 317 K/MM3 (134-434); RDW 12.7 % (11.9-15.9); WHITE BLOOD COUNT 13.5 K/mm3 (4.0-10.0)
--- NOTE | 2017-03-17 08:21 | PN ---
Progress Note (short form) - Note Progress Note: NEUROSURGERY POD #4 Up with PT + BM, Incisional pain yesterday requiring additional meds Able to void Legs feeling cydney ; some post thigh pulling pain E; AF, Tmax 98.9, VSS CV- RRR; Lungs- CTA B; Abd- benign; Ext- no sign of DVT CN- intact; Motor 4+ at least B LE; Sensation grossly intact LT Dressing with no significant drainage; skin irritation from adhesives around - large gauze pads used WBC 13.5 On PRN Nucynta Cont PO Keflex Bowel regimen Observe wound and pain level today Plan d/c home if afebrile and no drainage Instructions given
[2017-03-17] MEDS: ATENOLOL 50 MG TABLET (FP) PO SCH (09:53)
[2017-03-17] MEDS: ENALAPRIL MALEATE 10 MG TABLET (FP) PO SCH (09:53)
[2017-03-17 15:27] VITALS: BP 135/78; PULSE 73; TEMP 98.3
== END 2017-03-17 17:05 | disposition home or self-care (01) | DRG 310 ==
LOC: JSAMEDAYSX 05:06 → EDSTATUS 08:00 → J8W 14:35
PROVIDERS: ADMIT Neurological Surgery; ATTEND Neurological Surgery
PROC: 00NY0ZZ Release Lumbar Spinal Cord, Open Approach (ICD-10-PCS; 2017-03-13)
PROC: 01NB0ZZ Release Lumbar Nerve, Open Approach (ICD-10-PCS; 2017-03-13)
PROC: 0SB20ZZ Excision of Lumbar Vertebral Disc, Open Approach (ICD-10-PCS; principal; 2017-03-13 08:00)
DX: M48.06 Spinal stenosis, lumbar region (principal); M54.5 Low back pain; M54.16 Radiculopathy, lumbar region; I10 Essential (primary) hypertension; E66.8 Other obesity; Z68.29 Body mass index [BMI] 29.0-29.9, adult
CPT/HCPCS: 36415; 72100-TC; 80048; 81003; 81015; 85025; 85027; 87086; 94760; 97116-GP; 97161-GP

== ENCOUNTER 2021-05-05 13:50 | Observation (INO) | payer OTHER ==
[2021-05-05 14:23] VITALS: TEMP 98.3; BMI 30.3
[2021-05-05] MEDS ORDERED: ACETAMINOPHEN 1000 MG/100 ML VIAL IVPB ONE (15:23)
[2021-05-05] MEDS ORDERED: METOCLOPRAMIDE HCL INJECTION 10 MG/2 ML VIAL IVPUSH ONE (15:23)
[2021-05-05] MEDS ORDERED: SODIUM CHLORIDE 0.9% 500 ML INFUS.BAG IV ONE (15:23)
[2021-05-05] MEDS ORDERED: METOCLOPRAMIDE HCL INJECTION 10 MG/2 ML VIAL ONE (15:30)
[2021-05-05] MEDS ORDERED: ACETAMINOPHEN INJECTION 100 ML IVPB ONE (15:30)
[2021-05-05] MEDS ORDERED: ALBUTEROL SO4 2.5/IPRATROPIUM 0.5 INH SOL 3 ML VIAL.NEB. NEB ONE (15:30)
[2021-05-05] MEDS: ALBUTEROL SO4 2.5/IPRATROPIUM 0.5 INH SOL 3 ML VIAL.NEB. NEB SCH ×2 (15:31→15:48)
[2021-05-05 16:16] LABS: BASO % 0.5 % (0-2.0); EOS % 1.1 % (0-4.5); HEMATOCRIT 41.9 % (35.4-49); HEMOGLOBIN 14.5 GM/dL (11.7-16.9); LYMPH % 35.1 % (8-40); MCH 31.6 pg (25.7-33.7); MCHC 34.6 g/dl (32.0-35.9); MEAN CELL VOLUME 91.2 fl (80-96); MEAN PLT VOLUME 7.8 fl (7.5-11.1); MONO % 6.4 % (3.8-10.2); NEUT % 56.9 % (42.8-82.8); PLATELET COUNT 277 10^3/uL (134-434); RDW 12.7 % (11.9-15.9); WHITE BLOOD COUNT 9.5 K/mm3 (4.0-10.0)
[2021-05-05 16:31] LABS: CHLORIDE 107 mmol/L (98-107); SODIUM 142 mmol/L (136-145)
[2021-05-05 16:35] LABS: CALCIUM 9.3 mg/dL (8.5-10.1)
[2021-05-05 16:36] LABS: ANION GAP 7 MMOL/L (8-16); BLOOD UREA NITROGEN 15.7 mg/dL (7-18); CO2 27 mmol/L (21-32); GLUCOSE,RANDOM 85 mg/dL (74-106)
[2021-05-05 16:39] LABS: CREATININE 0.9 mg/dL (0.55-1.3); SGOT/AST 20 U/L (15-37); SGPT/ALT 25 U/L (13-61)
[2021-05-05 16:40] LABS: BILIRUBIN,TOTAL 0.6 mg/dL (0.2-1)
[2021-05-05 16:42] LABS: ALK PHOS 76 U/L (45-117); TOT PROT 7.4 g/dl (6.4-8.2)
[2021-05-05 20:52] LABS: N-TERMINAL BNP 20.4 pg/ml (5-125)
[2021-05-05 22:32] VITALS: BP 152/79; PULSE 85
== END 2021-05-05 22:34 | disposition left against medical advice (07) ==
LOC: JER 13:50 → JERBED 19:58 → INTOOBSV 19:58
PROVIDERS: ADMIT Internal Medicine; ATTEND Internal Medicine
PROC: 3E033NZ Introduction of Analgesics, Hypnotics, Sedatives into Peripheral Vein, Percutaneous Approach (ICD-10-PCS; principal; 2021-05-05)
PROC: 3E0F7GC Introduction of Other Therapeutic Substance into Respiratory Tract, Via Natural or Artificial Opening (ICD-10-PCS; 2021-05-05)
PROC: 3E033GC Introduction of Other Therapeutic Substance into Peripheral Vein, Percutaneous Approach (ICD-10-PCS; 2021-05-05)
PROC: 3E0337Z Introduction of Electrolytic and Water Balance Substance into Peripheral Vein, Percutaneous Approach (ICD-10-PCS; 2021-05-05)
DX: I10 Essential (primary) hypertension (principal); N20.0 Calculus of kidney; U07.1 COVID-19; R06.02 Shortness of breath; R26.2 Difficulty in walking, not elsewhere classified; R07.89 Other chest pain
CPT/HCPCS: 36415; 70450-TC; 71046-TC-FY; 80053; 82550; 83880; 84484; 85025; 93005; 93010; 94640; 96374; 96375; 99285-25; C9803; G0378; J0131; U0003; U0005

== ENCOUNTER 2021-09-15 10:52 | Inpatient (IN) | payer OTHER ==
[2021-09-15] MEDS ORDERED: ONDANSETRON 4 MG/2 ML VIAL IVPUSH ONE (12:16)
[2021-09-15] MEDS ORDERED: KETOROLAC TROMETHAMINE 30 MG/1 ML VIAL IVPUSH ONE (12:16)
[2021-09-15] MEDS ORDERED: SODIUM CHLORIDE 1,000 ML IV STA (12:16)
[2021-09-15] MEDS ORDERED: ONDANSETRON 4 MG/2 ML VIAL ONE (12:33)
[2021-09-15] MEDS ORDERED: KETOROLAC TROMETHAMINE 30 MG/1 ML VIAL ONE (12:33)
[2021-09-15 13:12] LABS: BASO % 0.4 % (0-2.0); EOS % 0.3 % (0-4.5); HEMATOCRIT 40.9 % (35.4-49); HEMOGLOBIN 14.3 GM/dL (11.7-16.9); LYMPH % 12.7 % (8-40); MCH 31.5 pg (25.7-33.7); MCHC 34.9 g/dl (32.0-35.9); MEAN CELL VOLUME 90.4 fl (80-96); MEAN PLT VOLUME 7.6 fl (7.5-11.1); MONO % 6.3 % (3.8-10.2); NEUT % 80.3 % (42.8-82.8); PLATELET COUNT 284 10^3/uL (134-434); RBC 4.53 M/mm3 (4.00-5.60); RDW 12.7 % (11.9-15.9); WHITE BLOOD COUNT 13.1 K/mm3 (4.0-10.0)
[2021-09-15 13:14] LABS: EPI CELLS 4 /uL (0-25.1); HYALINE CASTS 3 /uL (0-3.1); URINE APPEARANCE TURBID; URINE BILIRUBIN 1+ (NEGATIVE); URINE COLOR ORANGE; URINE GLUCOSE (UA) NEGATIVE (NEGATIVE); URINE KETONE NEGATIVE (NEGATIVE); URINE LEUK ESTERASE 1+ (NEGATIVE); URINE NITRITE POSITIVE (NEGATIVE); URINE PROTEIN 2+ (NEGATIVE); URINE WBC 82 /uL (0-25.8)
[2021-09-15 13:32] LABS: ALBUMIN 4.3 g/dl (3.4-5.0); BLOOD UREA NITROGEN 15.1 mg/dL (7-18); CALCIUM 9.5 mg/dL (8.5-10.1)
[2021-09-15 13:35] LABS: CREATININE 1.2 mg/dL (0.55-1.3)
[2021-09-15 13:37] LABS: BILIRUBIN,TOTAL 0.8 mg/dL (0.2-1); TOT PROT 7.5 g/dl (6.4-8.2)
[2021-09-15 13:38] LABS: URINE BACTERIA 804.8 /uL (0-1359); URINE RBC 6670 /uL (0-23.9); YEAST NEGATIVE (NEGATIVE)
[2021-09-15] MEDS ORDERED: CEFTRIAXONE 1 GM in DEXTROSE 5%-WATER - 50 ML IVPB ONE (13:39)
[2021-09-15] MEDS ORDERED: CEFTRIAXONE 1 GM/50 ML BAG ONE (15:01)
[2021-09-15] MEDS ORDERED: TAMSULOSIN HCL 0.4 MG CAP PO ONE (15:06)
[2021-09-15] MEDS ORDERED: TAMSULOSIN HCL 0.4 MG CAP ONE (15:13)
[2021-09-15] MEDS: DEXTROSE 5%-0.45% SALINE 1,000 ML IV SCH (15:57)
[2021-09-15] MEDS ORDERED: HEPARIN NA (PORCINE) 5,000 UNITS/ML 1ML VIAL SQ SCH (18:00)
[2021-09-15] MEDS ORDERED: HEPARIN NA (PORCINE) 5,000 UNITS/ML 1ML VIAL ONE (19:19)
[2021-09-15] MEDS ORDERED: CEFEPIME HCL 1 GM VIAL (RESTRICTED TO ID) ONE (21:52)
[2021-09-15] MEDS ORDERED: DEXTROSE 5%-WATER 100 ML IVPB ONE (21:53)
[2021-09-15] MEDS: CEFEPIME 1 GM in DEXTROSE 5%-WATER 1 GM/100 ML BAG IVPB SCH (21:57)
[2021-09-15] MEDS: GABAPENTIN 300 MG CAPSULE PO SCH (21:58)
[2021-09-15] MEDS ORDERED: CEFEPIME HCL/D5W 1 GM/50 ML BAG IVPB SCH (22:00)
[2021-09-15] MEDS: KETOROLAC TROMETHAMINE 15 MG/ML VIAL IVPUSH PRN (23:50)
[2021-09-16] MEDS: DEXTROSE 5%-0.45% SALINE 1,000 ML IV SCH ×3 (00:32→21:05)
[2021-09-16 01:14] VITALS: BMI 32.0
[2021-09-16] MEDS: ACETAMINOPHEN 1000 MG/100 ML BAG IVPB PRN ×2 (03:18→10:59)
[2021-09-16] MEDS: GABAPENTIN 300 MG CAPSULE PO SCH ×3 (05:02→21:04)
[2021-09-16] MEDS ORDERED: TAMSULOSIN HCL 0.4 MG CAP PO SCH (08:30)
[2021-09-16] MEDS: KETOROLAC TROMETHAMINE 15 MG/ML VIAL IVPUSH PRN (08:37)
[2021-09-16] MEDS ORDERED: CEFEPIME HCL 1 GM VIAL (RESTRICTED TO ID) ONE ×2 (09:55→17:18)
[2021-09-16] MEDS ORDERED: DEXTROSE 5%-WATER 100 ML IVPB ONE ×2 (09:55→17:18)
[2021-09-16] MEDS: CEFEPIME 1 GM in DEXTROSE 5%-WATER 1 GM/100 ML BAG IVPB SCH ×2 (09:58→17:21)
[2021-09-16] MEDS ORDERED: LOSARTAN POTASSIUM 50 MG TABLET PO SCH (10:00)
[2021-09-16] MEDS ORDERED: amLODIPine BESYLATE 5 MG TABLET (FP) PO SCH (10:00)
[2021-09-16] MEDS ORDERED: PNEUMOC 13-VAL CONJ-DIP CRM/PF 0.5 ML DISP.SYRIN IM ONE (10:00)
[2021-09-16 10:56] LABS: HEMATOCRIT 37.9 % (35.4-49); HEMOGLOBIN 13.2 GM/dL (11.7-16.9); MCH 31.5 pg (25.7-33.7); MCHC 34.7 g/dl (32.0-35.9); MEAN CELL VOLUME 90.8 fl (80-96); MEAN PLT VOLUME 7.6 fl (7.5-11.1); PLATELET COUNT 244 10^3/uL (134-434); RBC 4.17 M/mm3 (4.00-5.60); RDW 12.2 % (11.9-15.9); WHITE BLOOD COUNT 10.7 K/mm3 (4.0-10.0)
[2021-09-16 11:20] LABS: ALBUMIN 3.5 g/dl (3.4-5.0); BLOOD UREA NITROGEN 17.8 mg/dL (7-18); CALCIUM 8.6 mg/dL (8.5-10.1)
[2021-09-16 11:23] LABS: CREATININE 1.5 mg/dL (0.55-1.3); PHOSPHOROUS 3.1 mg/dL (2.5-4.9)
[2021-09-16 11:25] LABS: TOT PROT 6.5 g/dl (6.4-8.2)
[2021-09-16] MEDS ORDERED: PROPOFOL 20 ML ONE (12:57)
[2021-09-16] MEDS ORDERED: MIDAZOLAM HCL 2 MG/2 ML SINGLE DOSE VIAL ONE (12:57)
[2021-09-16] MEDS ORDERED: GENTAMICIN SO4 80 MG/2 ML VIAL IVPB ONE (13:09)
[2021-09-16] MEDS ORDERED: GENTAMICIN SO4 80 MG/2 ML VIAL ONE (13:09)
[2021-09-16] MEDS ORDERED: IOHEXOL 300 MG/ML INFUS..BTL IV ONE (13:11)
[2021-09-16] MEDS ORDERED: DEXAMETHASONE SOD PHOSPHATE 4 MG/1 ML VIAL ONE (13:14)
[2021-09-16] MEDS ORDERED: KETOROLAC TROMETHAMINE 30 MG/1 ML VIAL IVPUSH PRN (13:44)
[2021-09-16] MEDS ORDERED: DEXTROSE 5%-0.45% SALINE 1,000 ML IV SCH (13:44)
[2021-09-16] MEDS ORDERED: ACETAMINOPHEN 1000 MG/100 ML BAG IVPB PRN (13:44)
[2021-09-16] MEDS ORDERED: ONDANSETRON 4 MG/2 ML VIAL IVPUSH PRN (13:55)
[2021-09-16] MEDS ORDERED: LACTATED RINGERS SOLUTION 1,000 ML IV SCH (14:00)
[2021-09-16] MEDS ORDERED: CEFEPIME 1 GM in DEXTROSE 5%-WATER 1 GM/100 ML BAG IVPB SCH (18:00)
[2021-09-17] MEDS ORDERED: DEXTROSE 5%-WATER 100 ML IVPB ONE ×2 (01:00→09:28)
[2021-09-17] MEDS ORDERED: CEFEPIME HCL 1 GM VIAL (RESTRICTED TO ID) ONE ×2 (01:00→09:28)
[2021-09-17] MEDS: CEFEPIME 1 GM in DEXTROSE 5%-WATER 1 GM/100 ML BAG IVPB SCH ×2 (01:34→09:33)
[2021-09-17] MEDS: DEXTROSE 5%-0.45% SALINE 1,000 ML IV SCH (03:43)
[2021-09-17] MEDS: GABAPENTIN 300 MG CAPSULE PO SCH ×2 (05:12→14:32)
[2021-09-17] MEDS ORDERED: TAMSULOSIN HCL 0.4 MG CAP PO SCH (08:30)
[2021-09-17] MEDS ORDERED: amLODIPine BESYLATE 5 MG TABLET (FP) PO SCH (10:00)
[2021-09-17] MEDS ORDERED: LOSARTAN POTASSIUM 50 MG TABLET PO SCH (10:00)
[2021-09-17 10:04] LABS: BASO % 0.2 % (0-2.0); HEMATOCRIT 36.4 % (35.4-49); HEMOGLOBIN 12.9 GM/dL (11.7-16.9); MCH 32.2 pg (25.7-33.7); MCHC 35.5 g/dl (32.0-35.9); MEAN CELL VOLUME 90.5 fl (80-96); MEAN PLT VOLUME 7.5 fl (7.5-11.1); MONO % 4.5 % (3.8-10.2); NEUT % 83.3 % (42.8-82.8); PLATELET COUNT 271 10^3/uL (134-434); RBC 4.02 M/mm3 (4.00-5.60); RDW 12.6 % (11.9-15.9)
[2021-09-17 10:27] LABS: CALCIUM 9.1 mg/dL (8.5-10.1)
[2021-09-17 10:31] LABS: CREATININE 1.1 mg/dL (0.55-1.3)
[2021-09-17] MEDS ORDERED: PNEUMOC 13-VAL CONJ-DIP CRM/PF 0.5 ML DISP.SYRIN IM ONE (14:00)
[2021-09-17 18:16] VITALS: BP 155/79; PULSE 74; TEMP 97.9
== END 2021-09-17 19:01 | disposition home or self-care (01) | DRG 661 ==
LOC: JER 10:52 → JERBED 14:30 → J5S 20:36
PROVIDERS: ADMIT Internal Medicine
PROC: 0T778DZ Dilation of Left Ureter with Intraluminal Device, Via Natural or Artificial Opening Endoscopic (ICD-10-PCS; principal; 2021-09-16 14:30)
PROC: 0TJB8ZZ Inspection of Bladder, Via Natural or Artificial Opening Endoscopic (ICD-10-PCS; 2021-09-16 14:30)
DX: N13.6 Pyonephrosis (principal); I10 Essential (primary) hypertension; M54.9 Dorsalgia, unspecified; D72.829 Elevated white blood cell count, unspecified; E78.5 Hyperlipidemia, unspecified; M54.50 Low back pain, unspecified; E66.9 Obesity, unspecified; Z68.32 Body mass index [BMI] 32.0-32.9, adult
CPT/HCPCS: 36415; 74176-TC; 76000-TC-FY; 80048; 80053; 81003; 83690; 83735; 84100; 85025; 85027; 87040; 87086; 87186; 90670; 93005; 93010; 94760; 99285-25; C9803; J1644; U0003; U0005

== ENCOUNTER 2021-10-06 14:31 | Inpatient (IN) | payer OTHER ==
[2021-10-06] MEDS ORDERED: LACTATED RINGERS SOLUTION 1000 ML INFUS.BAG IV ONE (15:46)
[2021-10-06] MEDS ORDERED: ACETAMINOPHEN 1000 MG/100 ML BAG IVPB ONE ×2 (15:46→21:37)
[2021-10-06] MEDS ORDERED: ACETAMINOPHEN INJECTION 100 ML IVPB ONE ×2 (16:02→20:56)
[2021-10-06 17:03] LABS: EPI CELLS 6 /uL (0-25.1); HYALINE CASTS 1 /uL (0-3.1); URINE APPEARANCE CLEAR; URINE BACTERIA 6 /uL (0-1359); URINE BILIRUBIN NEGATIVE (NEGATIVE); URINE COLOR ORANGE; URINE GLUCOSE (UA) NEGATIVE (NEGATIVE); URINE KETONE NEGATIVE (NEGATIVE); URINE LEUK ESTERASE 1+ (NEGATIVE); URINE NITRITE NEGATIVE (NEGATIVE); URINE PROTEIN 1+ (NEGATIVE); URINE UROBILINOGEN 0.2 mg/dL (0.2-1.0); URINE WBC 21 /uL (0-25.8)
[2021-10-06 17:36] LABS: BLOOD UREA NITROGEN 13.4 mg/dL (7-18); CALCIUM 9.7 mg/dL (8.5-10.1)
[2021-10-06 17:38] LABS: BASO % 0.5 % (0-2.0); EOS % 2.4 % (0-4.5); HEMATOCRIT 40.2 % (35.4-49); MCH 31.6 pg (25.7-33.7); MCHC 34.8 g/dl (32.0-35.9); MEAN CELL VOLUME 90.8 fl (80-96); MEAN PLT VOLUME 8.3 fl (7.5-11.1); MONO % 7.2 % (3.8-10.2); NEUT % 55.9 % (42.8-82.8); PLATELET COUNT 333 10^3/uL (134-434); RBC 4.43 M/mm3 (4.00-5.60); RDW 12.6 % (11.9-15.9); WHITE BLOOD COUNT 8.6 K/mm3 (4.0-10.0)
[2021-10-06 17:41] LABS: BILIRUBIN,TOTAL 0.5 mg/dL (0.2-1); TOT PROT 7.3 g/dl (6.4-8.2)
[2021-10-06] MEDS ORDERED: PIPERACILLIN/TAZOB 4.5 GM 4.5 GM in DEXTROSE 5%-WATER 100 ML IVPB ONE (19:02)
[2021-10-06 19:36] LABS: URINE RBC 150.6 /uL (0-23.9); YEAST NONE SEEN (NEGATIVE)
[2021-10-06] MEDS ORDERED: PIPERACILLIN/TAZOB 4.5 GM 4.5 GM/100 ML BAG IVPB ONE (20:53)
[2021-10-06] MEDS ORDERED: PHENAZOPYRIDINE HCL 100 MG TABLET (FP) ONE ×2 (21:35→21:36)
[2021-10-06] MEDS: PHENAZOPYRIDINE HCL 100 MG TABLET (FP) PO SCH (21:39)
[2021-10-06] MEDS: OXYBUTYNIN CHLORIDE 5 MG TABLET PO SCH (22:59)
[2021-10-06] MEDS ORDERED: LACTATED RINGERS SOLUTION 1,000 ML/1,000 ML INFUS.BAG IV SCH (23:00)
[2021-10-06] MEDS ORDERED: ACETAMINOPHEN 500 MG TABLET (FP) PO PRN (23:36)
[2021-10-07] MEDS ORDERED: GABAPENTIN 100 MG CAPSULE ONE ×2 (00:25→00:26)
[2021-10-07] MEDS: GABAPENTIN 300 MG CAPSULE PO SCH ×4 (00:37→21:02)
[2021-10-07] MEDS ORDERED: PIPERACILLIN/TAZOB 3.375 GM 3.375 GM in DEXTROSE 5%-WATER - 50 ML IVPB SCH (02:00)
[2021-10-07] MEDS ORDERED: PIPERACILLIN/TAZOBACTAM 3.375 GM VIAL IVPB ONE ×2 (04:58→09:39)
[2021-10-07] MEDS ORDERED: DEXTROSE 5%-WATER - 50 ML IVPB ONE ×3 (04:59→14:10)
[2021-10-07] MEDS: PIPERACILLIN/TAZOB 3.375 GM 3.375 GM in DEXTROSE 5%-WATER - 50 ML IVPB SCH ×2 (05:17→10:15)
[2021-10-07] MEDS: OXYBUTYNIN CHLORIDE 5 MG TABLET PO SCH ×3 (05:44→20:59)
[2021-10-07 06:10] VITALS: BMI 31.6
[2021-10-07 08:16] LABS: HEMATOCRIT 37.8 % (35.4-49); HEMOGLOBIN 13.2 GM/dL (11.7-16.9); MCH 31.7 pg (25.7-33.7); MCHC 34.9 g/dl (32.0-35.9); MEAN CELL VOLUME 90.6 fl (80-96); MEAN PLT VOLUME 7.9 fl (7.5-11.1); PLATELET COUNT 315 10^3/uL (134-434); RBC 4.17 M/mm3 (4.00-5.60); RDW 12.8 % (11.9-15.9); WHITE BLOOD COUNT 8.5 K/mm3 (4.0-10.0)
[2021-10-07 08:21] LABS: INR 1.08 (0.83-1.09); PROTHROMBIN TIME (PATIENT) 12.4 SEC (9.7-13.0)
[2021-10-07 08:23] LABS: ACTIVATED PTT 31.1 SECONDS (25.2-36.5)
[2021-10-07 08:32] LABS: CALCIUM 9.1 mg/dL (8.5-10.1)
[2021-10-07 08:33] LABS: BLOOD UREA NITROGEN 13.2 mg/dL (7-18)
[2021-10-07 08:36] LABS: CREATININE 1.1 mg/dL (0.55-1.3)
[2021-10-07] MEDS: TAMSULOSIN HCL 0.4 MG CAP PO SCH ×2 (08:42→17:19)
[2021-10-07] MEDS: LOSARTAN POTASSIUM 50 MG TABLET PO SCH (10:14)
[2021-10-07] MEDS: amLODIPine BESYLATE 5 MG TABLET (FP) PO SCH (10:15)
[2021-10-07] MEDS: PHENAZOPYRIDINE HCL 100 MG TABLET (FP) PO SCH ×2 (10:15→21:00)
[2021-10-07] MEDS ORDERED: ACETAMINOPHEN 325 MG TABLET (FP) PO SCH (10:45)
[2021-10-07] MEDS: oxyCODONE HCL 5 MG TABLET PO SCH ×2 (10:55→21:01)
[2021-10-07] MEDS: LACTATED RINGERS SOLUTION 1,000 ML/1,000 ML INFUS.BAG IV SCH ×2 (14:01→20:59)
[2021-10-07] MEDS: FINASTERIDE 5 MG TABLET (FP) PO SCH (14:02)
[2021-10-07] MEDS ORDERED: cefTRIAXone SODIUM 1 GM VIAL ONE (14:10)
[2021-10-07] MEDS: CEFTRIAXONE 1 GM in DEXTROSE 5%-WATER - 50 ML IVPB SCH (14:16)
[2021-10-07] MEDS: ACETAMINOPHEN 325 MG TABLET (FP) PO SCH (21:02)
[2021-10-08] MEDS: OXYBUTYNIN CHLORIDE 5 MG TABLET PO SCH ×2 (05:42→15:41)
[2021-10-08] MEDS: GABAPENTIN 300 MG CAPSULE PO SCH ×2 (05:42→15:41)
[2021-10-08 09:08] LABS: BLOOD UREA NITROGEN 10.5 mg/dL (7-18)
[2021-10-08 09:09] LABS: CALCIUM 9.5 mg/dL (8.5-10.1)
[2021-10-08] MEDS: CEFTRIAXONE 1 GM in DEXTROSE 5%-WATER - 50 ML IVPB SCH ×2 (10:00→10:41)
[2021-10-08] MEDS: TAMSULOSIN HCL 0.4 MG CAP PO SCH ×2 (10:40→11:59)
[2021-10-08] MEDS: LOSARTAN POTASSIUM 50 MG TABLET PO SCH ×2 (10:41→11:59)
[2021-10-08] MEDS: PHENAZOPYRIDINE HCL 100 MG TABLET (FP) PO SCH ×2 (10:41→12:00)
[2021-10-08] MEDS: ACETAMINOPHEN 325 MG TABLET (FP) PO SCH (10:41)
[2021-10-08] MEDS: oxyCODONE HCL 5 MG TABLET PO SCH ×2 (10:41→12:00)
[2021-10-08] MEDS: FINASTERIDE 5 MG TABLET (FP) PO SCH ×2 (10:41→11:59)
[2021-10-08] MEDS: amLODIPine BESYLATE 5 MG TABLET (FP) PO SCH ×2 (10:41→11:59)
[2021-10-08] MEDS ORDERED: cefTRIAXone SODIUM 1 GM VIAL ONE (11:45)
[2021-10-08] MEDS ORDERED: DEXTROSE 5%-WATER - 50 ML IVPB ONE (11:45)
[2021-10-08] MEDS ORDERED: ACETAMINOPHEN 1000 MG/100 ML BAG IVPB PRN ×2 (12:30→17:24)
[2021-10-08] MEDS ORDERED: ACETAMINOPHEN 325 MG TABLET (FP) PO SCH ×2 (12:45→22:00)
[2021-10-08] MEDS: LACTATED RINGERS SOLUTION 1,000 ML/1,000 ML INFUS.BAG IV SCH (13:02)
[2021-10-08] MEDS ORDERED: PROPOFOL 20 ML ONE ×4 (16:43→16:59)
[2021-10-08] MEDS ORDERED: SUCCINYLCHOLINE CHLORIDE 200 MG/10 ML SYRINGE ONE (16:44)
[2021-10-08] MEDS ORDERED: ceFAZolin SODIUM 1 GM VIAL IVPB ONE (16:54)
[2021-10-08] MEDS ORDERED: LACTATED RINGERS SOLUTION 1,000 ML/1,000 ML INFUS.BAG IV SCH (17:24)
[2021-10-08] MEDS ORDERED: ONDANSETRON 4 MG/2 ML VIAL IVPUSH PRN (17:43)
[2021-10-08] MEDS ORDERED: ACETAMINOPHEN 1000 MG/100 ML BAG IVPB ONE (17:44)
[2021-10-08] MEDS ORDERED: LACTATED RINGERS SOLUTION 1,000 ML IV SCH (17:45)
[2021-10-08] MEDS ORDERED: TAMSULOSIN HCL 0.4 MG CAP PO SCH (18:00)
[2021-10-08 18:03] VITALS: BP 127/63; PULSE 76; TEMP 97
[2021-10-08] MEDS ORDERED: OXYBUTYNIN CHLORIDE 5 MG TABLET PO SCH (22:00)
[2021-10-08] MEDS ORDERED: PHENAZOPYRIDINE HCL 100 MG TABLET (FP) PO SCH (22:00)
[2021-10-08] MEDS ORDERED: oxyCODONE HCL 5 MG TABLET PO SCH (22:00)
[2021-10-08] MEDS ORDERED: GABAPENTIN 300 MG CAPSULE PO SCH (22:00)
[2021-10-09] MEDS ORDERED: CEFTRIAXONE 1 GM in DEXTROSE 5%-WATER - 50 ML IVPB SCH (10:00)
[2021-10-09] MEDS ORDERED: LOSARTAN POTASSIUM 50 MG TABLET PO SCH (10:00)
[2021-10-09] MEDS ORDERED: FINASTERIDE 5 MG TABLET (FP) PO SCH (10:00)
[2021-10-09] MEDS ORDERED: amLODIPine BESYLATE 5 MG TABLET (FP) PO SCH (10:00)
== END 2021-10-08 19:24 | disposition home or self-care (01) | DRG 694 ==
LOC: JER 14:31 → JERBED 19:47 → J6S 10-07 00:46
PROVIDERS: ADMIT Hospitalist
PROC: 0TC78ZZ Extirpation of Matter from Left Ureter, Via Natural or Artificial Opening Endoscopic (ICD-10-PCS; 2021-10-08)
PROC: 0TP98DZ Removal of Intraluminal Device from Ureter, Via Natural or Artificial Opening Endoscopic (ICD-10-PCS; principal; 2021-10-08 14:30)
PROC: BT1FZZZ Fluoroscopy of Left Kidney, Ureter and Bladder (ICD-10-PCS; 2021-10-08 14:30)
DX: N20.1 Calculus of ureter (principal); N39.0 Urinary tract infection, site not specified; I10 Essential (primary) hypertension; M54.50 Low back pain, unspecified; N50.82 Scrotal pain; G89.29 Other chronic pain; K59.00 Constipation, unspecified; Z87.442 Personal history of urinary calculi
CPT/HCPCS: 36415; 74177-TC; 76870-TC; 80048; 80053; 81003; 82105; 82360; 84702; 85025; 85027; 85610; 85730; 86850; 86900; 86901; 87086; 88300-TC; 94760; 99285-25; C9803-CS; Q9967; U0003; U0005